=== PATIENT | female | born 1980 | race American Indian/Alaskan Native ===

== ENCOUNTER 2017-04-14 05:59 | Observation (INO) | payer OTHER ==
[2017-04-14 09:00] LABS: Basophils % (Auto) 1.1 % (0.0-1.8); Eosinophils # (Auto) 0.2 K/mm3 (0.0-0.4); Eosinophils % (Auto) 4.3 % (0.0-4.3); Hematocrit 29.8 % (30.3-42.9); Hemoglobin 9.7 gm/dl (10.1-14.3); Lymphocytes # (Auto) 1.6 K/mm3 (1.2-5.4); Lymphocytes % (Auto) 40.3 % (13.4-35.0); Mean Corpuscular HGB Conc 33 % (30-34); Mean Corpuscular Hemoglobin 27 pg (28-32); Mean Corpuscular Volume 83 fl (79-97); Monocytes # (Auto) 0.5 K/mm3 (0.0-0.8); Monocytes % (Auto) 11.6 % (0.0-7.3); Platelet Count 277 K/mm3 (140-440); Red Blood Count 3.61 M/mm3 (3.65-5.03); Red Cell Distribution Width 14.1 % (13.2-15.2)
[2017-04-14 09:54] LABS: INR 0.88 (0.87-1.13)
[2017-04-14 09:55] LABS: Partial Thromboplastin Time 30.3 Sec. (24.2-36.6)
[2017-04-14] MEDS ORDERED: VERSED IV ONE ×2 (11:01→11:05)
--- NOTE | 2017-04-14 11:56 | Cat Scan Report ---
CT BIOPSY RENAL LEFT HISTORY: Proteinuria, hematuria. DESCRIPTION OF PROCEDURE: Informed consent was obtained. Sterile technique was utilized. 1% lidocaine for skin anesthesia. 1 mg of IV Versed was administered. The patient refused fentanyl. Independent cardiorespiratory monitoring by RN. The patient was sedated for 10 minutes. Intraobserver time of [address] guidance, a 17-gauge introducer needle was advanced to the inferior pole of the left kidney. 2 separate 1.3 cm 18-gauge core biopsies were obtained for pathology. The patient tolerated the exam without difficulty. Followup scan demonstrates trace hemorrhage at the biopsy site. The patient was asymptomatic. IMPRESSION: Successful CT-guided biopsy of the inferior pole of the left kidney.
[2017-04-14] MEDS ORDERED: NORCO 5/325 PO ONE (13:23)
--- NOTE | 2017-04-14 15:33 | Cat Scan Report ---
CT ABDOMEN WITHOUT CONTRAST History: Left flank pain after renal biopsy. Technique: Helical CT without contrast. Sagittal and coronal reformatted images. Findings: CT guided biopsy at the inferior pole of the left kidney was performed earlier today at approximately 1130 hrs. On the post biopsy scan, there was trace hemorrhage at the biopsy site which was to be expected. During observation in the outpatient unit, the patient began experiencing increasing left flank pain. The patient was brought back to CT for an additional scan to assess for hemorrhage. The second scan does demonstrate increased acute hemorrhage at the biopsy site since 11:30 hrs. The left perinephric hemorrhage is estimated at a volume of 30-50 cc. There is mild anterior displacement of the left kidney by the hemorrhage. The liver, pancreas, spleen, adrenal glands, right kidney, aorta and visualized bowel loops are within normal limits. There appear to be multiple tiny layering stones in the gallbladder. No biliary dilatation. Heart size is normal. The lung bases are clear. No suspicious bony lesion. IMPRESSION: Left perinephric hemorrhage/hematoma is identified at the left renal biopsy site. See above. Dr. Rothman, the ordering physician, was contacted at 1440 hrs. to discuss these findings. It was decided to admit the patient for 23 hour observation especially given the patient's quaker belief of no blood transfusions. The patient was hemodynamically stable and complained only of dull left flank pain. The hospitalist supervisor publications was contacted and updated on the case.
[2017-04-14 16:25] LABS: Basophils % (Auto) 0.6 % (0.0-1.8); Eosinophils # (Auto) 0.1 K/mm3 (0.0-0.4); Eosinophils % (Auto) 3.1 % (0.0-4.3); Hematocrit 27.3 % (30.3-42.9); Hemoglobin 8.9 gm/dl (10.1-14.3); Lymphocytes # (Auto) 1.2 K/mm3 (1.2-5.4); Lymphocytes % (Auto) 30.8 % (13.4-35.0); Mean Corpuscular HGB Conc 33 % (30-34); Mean Corpuscular Hemoglobin 27 pg (28-32); Mean Corpuscular Volume 81 fl (79-97); Monocytes # (Auto) 0.4 K/mm3 (0.0-0.8); Monocytes % (Auto) 10.3 % (0.0-7.3); Platelet Count 243 K/mm3 (140-440); Red Blood Count 3.35 M/mm3 (3.65-5.03)
[2017-04-14] MEDS ORDERED: NACL 0.9% 1000 ML 1,000 ML ONE (16:36)
[2017-04-14] MEDS: NACL 0.9% 1000 ML 1,000 ML IV SCH (16:39)
[2017-04-14 16:52] LABS: Albumin 3.6 g/dL (3.9-5); Calcium 8.6 mg/dL (8.4-10.2)
--- NOTE | 2017-04-14 23:55 | History and Physical Report ---
History of Present Illness Date of examination: 04/14/17 Date of admission: 04/14/17 15:43 Chief complaint: CC Hematoma L Kidney -post biopsy History of present illness: [place] 36 y/o with CKD admitted for Perinephric Hematoma L side after renal biopsy for observation.No flank pain. Dr Mayes called me to admit directly from radiology dept for moderate amt og Perinephric hematoma.Reviewed CT films with Dr Mayes.Hematoma stabilized.Admit for in case of excess bleeding. Past History Past Medical History: renal failure Past Surgical History: No surgical history Social history: no significant social history, full code Family history: hypertension Medications and Allergies Allergies Allergy/AdvReac Type Severity Reaction Status Date / Time No Known Allergies Allergy Unverified 04/14/17 05:59 Home Medications Medication Instructions Recorded Confirmed Last Taken Type No Known Home Medications [No 04/14/17 04/14/17 Unknown History Reported Home Medications] Active Meds: Active Medications Sodium Chloride (Nacl 0.9% 1000 Ml) 1,000 mls @ 75 mls/hr IV DIRECT PONCE Last Admin: 04/14/17 16:39 Dose: 75 mls/hr Review of Systems All systems: negative Exam - Constitutional Vitals: Temp Pulse Resp BP Pulse Ox 98.8 F 70 18 131/89 100 04/14/17 20:14 04/14/17 21:17 04/14/17 20:14 04/14/17 20:14 04/14/17 20:14 General appearance: Present: no acute distress, well-nourished - EENT Eyes: Present: PERRL ENT: hearing intact, clear oral mucosa - Neck Neck: Present: supple, normal ROM - Respiratory Respiratory effort: normal Respiratory: bilateral: CTA - Cardiovascular Heart rate: 80 Rhythm: regular Heart Sounds: Present: S1 & S2. Absent: rub, click - Extremities Extremities: no ischemia, pulses intact, pulses symmetrical, No edema Peripheral Pulses: within normal limits - Abdominal General gastrointestinal: Present: soft, non-tender, non-distended, normal bowel sounds, other (No flank tenderness) Female genitourinary: Present: normal - Integumentary Integumentary: Present: clear, warm, dry - Musculoskeletal Musculoskeletal: gait normal, strength equal bilaterally - Psychiatric Psychiatric: appropriate mood/affect, intact judgment & insight - Neurologic Neurologic: CNII-XII intact, moves all extremities Results - Labs CBC & Chem 7: 04/15/17 05:30 04/15/17 05:30 Labs: Laboratory Last Values WBC 4.1 K/mm3 (4.5-11.0) L 04/14/17 16:21 RBC 3.35 M/mm3 (3.65-5.03) L 04/14/17 16:21 Hgb 8.9 gm/dl (10.1-14.3) L 04/14/17 16:21 Hct 27.3 % (30.3-42.9) L 04/14/17 16:21 MCV 81 fl (79-97) 04/14/17 16:21 MCH 27 pg (28-32) L 04/14/17 16:21 MCHC 33 % (30-34) 04/14/17 16:21 RDW 14.0 % (13.2-15.2) 04/14/17 16:21 Plt Count 243 K/mm3 (140-440) 04/14/17 16:21 Lymph % (Auto) 30.8 % (13.4-35.0) 04/14/17 16:21 [place] % (Auto) 10.3 % (0.0-7.3) H 04/14/17 16:21 Eos % (Auto) 3.1 % (0.0-4.3) 04/14/17 16:21 Baso % (Auto) 0.6 % (0.0-1.8) 04/14/17 16:21 Lymph # 1.2 K/mm3 (1.2-5.4) 04/14/17 16:21 [place] # 0.4 K/mm3 (0.0-0.8) 04/14/17 16:21 Eos # 0.1 K/mm3 (0.0-0.4) 04/14/17 16:21 Baso # 0.0 K/mm3 (0.0-0.1) 04/14/17 16:21 Seg Neutrophils % 55.2 % (40.0-70.0) 04/14/17 16:21 Seg Neutrophils # 2.2 K/mm3 (1.8-7.7) 04/14/17 16:21 PT 12.4 Sec. (12.2-14.9) 04/14/17 08:51 INR 0.88 (0.87-1.13) 04/14/17 08:51 APTT 30.3 Sec. (24.2-36.6) 04/14/17 08:51 Sodium 140 mmol/L (137-145) 04/14/17 16:21 Potassium 4.8 mmol/L (3.6-5.0) 04/14/17 16:21 Chloride 103.6 mmol/L (98-107) 04/14/17 16:21 Carbon Dioxide 25 mmol/L (22-30) 04/14/17 16:21 Anion Gap 16 mmol/L 04/14/17 16:21 BUN 32 mg/dL (7-17) H 04/14/17 16:21 Creatinine 3.7 mg/dL (0.7-1.2) H 04/14/17 16:21 Estimated GFR 17 ml/min 04/14/17 16:21 BUN/Creatinine Ratio 9 % 04/14/17 16:21 Glucose 109 mg/dL (65-100) H 04/14/17 16:21 Calcium 8.6 mg/dL (8.4-10.2) 04/14/17 16:21 Total Bilirubin 0.40 mg/dL (0.1-1.2) 04/14/17 16:21 AST 13 units/L (5-40) 04/14/17 16:21 ALT 8 units/L (7-56) 04/14/17 16:21 Alkaline Phosphatase 55 units/L (35-129) 04/14/17 16:21 Total Protein 6.3 g/dL (6.3-8.2) 04/14/17 16:21 Albumin 3.6 g/dL (3.9-5) L 04/14/17 16:21 Albumin/Globulin Ratio 1.3 % 04/14/17 16:21 Assessment and Plan Advance Directives: Yes (Full code) VTE prophylaxis?: Mechanical Contraindication Mechanical VTE Prophylaxis: Contraindicated Plan of care discussed with patient/family: Yes - Patient Problems (1) Perinephric hematoma Current Visit: Yes Status: Acute Plan to address problem: Post biopsy on L side Stable at the time of review of CT abd To rpt CT abd in AM and D/w radiology If necessary Urology consult If stable /resolving d/c home to follow up with her presentation specialist (2) EL (acute kidney injury) Current Visit: Yes Status: Acute Plan to address problem: On top of CKD Her Forest Officer is from [facility] Consulted Dr Looney (3) Anemia Current Visit: Yes Status: Chronic Qualifiers: Anemia type: due to chronic kidney disease Chronic kidney disease stage: stage 3 (moderate) Qualified Code(s): N18.3 - Chronic kidney disease, stage 3 (moderate); D63.1 - Anemia in chronic kidney disease; D63.1 - Anemia in chronic kidney disease Plan to address problem: Sec to CKD (4) DVT prophylaxis Current Visit: Yes Status: Acute Plan to address problem: on SCD's
[2017-04-15] MEDS ORDERED: AMBIEN PO PRN (00:40)
[2017-04-15] MEDS ORDERED: TYLENOL PO PRN (00:40)
[2017-04-15] MEDS ORDERED: PERCOCET 5/325 PO PRN (00:40)
[2017-04-15] MEDS ORDERED: DILAUDID IV PRN (00:40)
[2017-04-15] MEDS ORDERED: ZOFRAN IV PRN (00:40)
[2017-04-15] MEDS ORDERED: MILK OF MAGNESIA PO PRN (00:40)
[2017-04-15] MEDS ORDERED: DULCOLAX PR PRN (00:40)
[2017-04-15] MEDS ORDERED: PEPCID PO SCH (01:00)
[2017-04-15] MEDS ORDERED: MORPHINE IV PRN (01:33)
[2017-04-15 01:43] LABS: Basophils % (Auto) 0.5 % (0.0-1.8); Eosinophils # (Auto) 0.2 K/mm3 (0.0-0.4); Eosinophils % (Auto) 3.7 % (0.0-4.3); Hematocrit 27.3 % (30.3-42.9); Hemoglobin 8.9 gm/dl (10.1-14.3); Lymphocytes # (Auto) 1.7 K/mm3 (1.2-5.4); Lymphocytes % (Auto) 35.9 % (13.4-35.0); Mean Corpuscular HGB Conc 33 % (30-34); Mean Corpuscular Hemoglobin 26 pg (28-32); Mean Corpuscular Volume 81 fl (79-97); Monocytes # (Auto) 0.5 K/mm3 (0.0-0.8); Monocytes % (Auto) 10.3 % (0.0-7.3); Platelet Count 237 K/mm3 (140-440); Red Blood Count 3.37 M/mm3 (3.65-5.03); Red Cell Distribution Width 13.9 % (13.2-15.2)
[2017-04-15 05:58] LABS: Hematocrit 26.4 % (30.3-42.9); Hemoglobin 8.6 gm/dl (10.1-14.3); Mean Corpuscular HGB Conc 32 % (30-34); Mean Corpuscular Hemoglobin 26 pg (28-32); Mean Corpuscular Volume 82 fl (79-97); Platelet Count 231 K/mm3 (140-440); Red Blood Count 3.24 M/mm3 (3.65-5.03); Red Cell Distribution Width 13.9 % (13.2-15.2)
[2017-04-15 06:13] LABS: Calcium 8.3 mg/dL (8.4-10.2)
[2017-04-15] MEDS: NACL 0.9% 1000 ML 1,000 ML IV SCH ×2 (06:35→21:47)
--- NOTE | 2017-04-15 08:07 | Cat Scan Report ---
CT ABDOMEN PELVIS WITHOUT CONTRAST: HISTORY: Left flank pain, reevaluate left perinephric hemorrhage. COMPARISON: 04/14/17 at 1415 hrs.. TECHNIQUE: Helical CT in 1.25mm intervals without IV contrast. Sagittal and coronal reconstructions. FINDINGS: Lung bases: Normal. Liver: Normal. Biliary system: Multiple tiny layering gallstones are again noted in the gallbladder. No evidence for biliary dilatation or inflammation. The common bile duct is normal caliber. Pancreas: Normal. Spleen: Normal. Kidneys/ureters/bladder: The left perinephric hemorrhage has decreased from 6.3 x 3.3 cm in axial plane to 5.2 x 2.4 cm in axial plane on image 62, series 2. Anterior displacement of the left kidney has also decreased by approximately 1 cm. This appears to be a perinephric hemorrhage and not a subcapsular hematoma. The unenhanced CT appearance of the kidneys are within normal limits. No evidence for cystic disease, large renal mass, nephrolithiasis or hydronephrosis. Left ovarian vein phlebolith is noted. The right kidney and bladder are unremarkable. Adrenal glands: Normal. Aorta: Normal. Intestines: Within normal limits given no oral contrast was administered. Appendix: Normal. Pelvic viscera: Normal. Ascites: There is trace fluid in the left paracolic gutter and cul-de-sac associated with the left perinephric hemorrhage. Adenopathy: None. Musculoskeletal: Normal. IMPRESSION: From a radiographic standpoint, the left perinephric hemorrhage has stabilized and decreased slightly in size as outlined above. No new acute process is appreciated. Cholelithiasis.
--- NOTE | 2017-04-15 08:28 | Consultation ---
History of Present Illness - Reason for Consult Consult date: 04/15/17 acute renal failure, chronic renal failure - History of Present Illness The patient is a 36 YO AAF with history significant for CKD stage 4 of unknown etiology who underwent left kidney needle biopsy yesterday. She developed left flank and on further imaging she was found to have left Perinephric Hematoma and she was admitted for observation. Her pain is better today. Denies any urinary symptoms. Her Doorshaker is . Past History Past Medical History: renal failure Past Surgical History: No surgical history Social history: no significant social history, full code Family history: hypertension Medications and Allergies Allergies Allergy/AdvReac Type Severity Reaction Status Date / Time No Known Allergies Allergy Unverified 04/14/17 05:59 Home Medications Medication Instructions Recorded Confirmed Last Taken Type No Known Home Medications [No 04/14/17 04/14/17 Unknown History Reported Home Medications] Active Meds: Active Medications Acetaminophen (Tylenol) 650 mg PO Q4H PRN PRN Reason: Pain MILD(1-3)/Fever >100.5/SALEH Bisacodyl (Dulcolax) 10 mg DE QDAY PRN PRN Reason: Constipation unrelieved by [facility] Famotidine (Pepcid) 10 mg PO BID PONCE Hydromorphone HCl (Dilaudid) 0.5 mg IV Q3H PRN PRN Reason: Pain , Severe (7-10) Sodium Chloride (Nacl 0.9% 1000 Ml) 1,000 mls @ 75 mls/hr IV DIRECT PONCE Last Admin: 04/15/17 06:35 Dose: 75 mls/hr Magnesium Hydroxide (Milk Of Magnesia) 30 ml PO Q4H PRN PRN Reason: Constipation Morphine Sulfate (Morphine) 2 mg IV Q4H PRN PRN Reason: Pain, Moderate (4-6) Ondansetron HCl (Zofran) 4 mg IV Q8H PRN PRN Reason: N/V unrelieved by Reglan Oxycodone/Acetaminophen (Percocet 5/325) 1 tab PO Q6H PRN PRN Reason: Pain, Moderate (4-6) Zolpidem Tartrate (Ambien) 5 mg PO QHS PRN PRN Reason: Insomnia Review of Systems Constitutional: no weight loss, no weight gain, no fever, no chills, no anorexia , no weakness, no poor appetite Ears, nose, mouth and throat: no epistaxis Breasts: deferred Cardiovascular: no chest pain, no orthopnea, no palpitations, no edema, no syncope, no lightheadedness, no shortness of breath, no high blood pressure, no leg edema Respiratory: no cough, no hemoptysis, no shortness of breath Gastrointestinal: no nausea, no vomiting, no diarrhea, no constipation, no melena Genitourinary Female: flank pain (left side), no dysuria, no hematuria Rectal: no bleeding Integumentary: no rash, no wounds Psychiatric: no disorientation Exam - Vital Signs Vital signs: Vital Signs Temp Pulse Resp BP Pulse Ox 98.3 F 79 18 138/101 100 04/14/17 08:30 04/14/17 08:30 04/14/17 08:30 04/14/17 08:30 04/14/17 08:30 - General Appearance General appearance: well-developed, well-nourished, appears stated age, other ( Supervisor [employer]ir present, no distress) EENT: ATNC, PERRL, hearing intact, vision intact Neck: Present: neck supple, trachea midline Respiratory: Clear to Ascultation Heart: regular, S1S2, no murmurs Gastrointestinal: Present: normoactive bowel sounds, other (dressing over the biopsy site). Absent: tenderness, distended Integumentary: no rash, warm and dry Neurologic: no focal deficit, no asterixis, alert and oriented x3 Musculoskeletal: Present: other (no edema) Psychiatric: mood/affect appropriate, cooperative Results - Lab Results 04/15/17 10:31 04/15/17 10:31 Most recent lab results Calcium 8.3 mg/dL (8.4-10.2) L 04/15/17 05:30 - Image Kidney/bladder ultrasound: report reviewed Assessment and Plan 1. Chronic kidney disease stage 4. Renal function is stable. Monitor. 2. Left perinephric hematoma after kidney biopsy. 3. Anemia.
--- NOTE | 2017-04-15 09:13 | Progress Note ---
<JACKLYN ESCOBAR - Last Filed: 04/15/17 11:34> Assessment and Plan Assessment and plan: 36 y/o with CKD admitted for Perinephric Hematoma L side after renal biopsy for observation.No flank pain. Dr Mayes called to admit directly from radiology dept for moderate amt of Perinephric hematoma. 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 Follow up on diagnosis of Perinephric hematoma. Patient denies chest pain, shortness of breath, nausea vomiting. Labs and nursing notes reviewed Hospitalist Physical - Constitutional Vitals: Temp Pulse Resp BP Pulse Ox 98.2 F 74 16 128/76 100 04/15/17 01:00 04/15/17 01:00 04/15/17 01:00 04/15/17 01:00 04/15/17 01:00 General appearance: Present: no acute distress, well-nourished - EENT Eyes: Present: PERRL, EOM intact ENT: hearing intact, clear oral mucosa - Neck Neck: Present: supple, normal ROM - Respiratory Respiratory effort: normal Respiratory: bilateral: CTA - Cardiovascular Rhythm: regular Heart Sounds: Present: S1 & S2 - Extremities Extremities: no ischemia, No edema - Abdominal General gastrointestinal: soft, non-tender, non-distended - Integumentary Integumentary: Present: clear, warm, dry - Psychiatric Psychiatric: appropriate mood/affect, intact judgment & insight, cooperative - Neurologic Neurologic: CNII-XII intact, moves all extremities - Allied Health Allied health notes reviewed: nursing Results - Labs CBC & Chem 7: 04/15/17 10:31 04/15/17 05:30 Labs: Laboratory Last Values WBC 4.6 K/mm3 (4.5-11.0) 04/15/17 05:30 RBC 3.24 M/mm3 (3.65-5.03) L 04/15/17 05:30 Hgb 8.6 gm/dl (10.1-14.3) L 04/15/17 05:30 Hct 26.4 % (30.3-42.9) L 04/15/17 05:30 MCV 82 fl (79-97) 04/15/17 05:30 MCH 26 pg (28-32) L 04/15/17 05:30 MCHC 32 % (30-34) 04/15/17 05:30 RDW 13.9 % (13.2-15.2) 04/15/17 05:30 Plt Count 231 K/mm3 (140-440) 04/15/17 05:30 Lymph % (Auto) 35.9 % (13.4-35.0) H 04/15/17 00:57 [place] % (Auto) 10.3 % (0.0-7.3) H 04/15/17 00:57 Eos % (Auto) 3.7 % (0.0-4.3) 04/15/17 00:57 Baso % (Auto) 0.5 % (0.0-1.8) 04/15/17 00:57 Lymph # 1.7 K/mm3 (1.2-5.4) 04/15/17 00:57 [place] # 0.5 K/mm3 (0.0-0.8) 04/15/17 00:57 Eos # 0.2 K/mm3 (0.0-0.4) 04/15/17 00:57 Baso # 0.0 K/mm3 (0.0-0.1) 04/15/17 00:57 Seg Neutrophils % 49.6 % (40.0-70.0) 04/15/17 00:57 Seg Neutrophils # 2.3 K/mm3 (1.8-7.7) 04/15/17 00:57 PT 12.4 Sec. (12.2-14.9) 04/14/17 08:51 INR 0.88 (0.87-1.13) 04/14/17 08:51 APTT 30.3 Sec. (24.2-36.6) 04/14/17 08:51 Sodium 142 mmol/L (137-145) 04/15/17 05:30 Potassium 4.8 mmol/L (3.6-5.0) 04/15/17 05:30 Chloride 105.9 mmol/L (98-107) 04/15/17 05:30 Carbon Dioxide 22 mmol/L (22-30) 04/15/17 05:30 Anion Gap 19 mmol/L 04/15/17 05:30 BUN 32 mg/dL (7-17) H 04/15/17 05:30 Creatinine 4.2 mg/dL (0.7-1.2) H 04/15/17 05:30 Estimated GFR 14 ml/min 04/15/17 05:30 BUN/Creatinine Ratio 8 % 04/15/17 05:30 Glucose 85 mg/dL (65-100) 04/15/17 05:30 Hemoglobin A1c 4.9 % (4-6) 04/15/17 00:57 Calcium 8.3 mg/dL (8.4-10.2) L 04/15/17 05:30 Total Bilirubin 0.40 mg/dL (0.1-1.2) 04/14/17 16:21 AST 13 units/L (5-40) 04/14/17 16:21 ALT 8 units/L (7-56) 04/14/17 16:21 Alkaline Phosphatase 55 units/L (35-129) 04/14/17 16:21 Total Protein 6.3 g/dL (6.3-8.2) 04/14/17 16:21 Albumin 3.6 g/dL (3.9-5) L 04/14/17 16:21 Albumin/Globulin Ratio 1.3 % 04/14/17 16:21 <RODOLFO GOYAL R - Last Filed: 04/15/17 15:15> Assessment and Plan Assessment and plan: I saw and evaluated the patient. I agree with the findings and the plan of care as documented in the PA's~note, with the following corrections and additions. Hospitalist Physical - Constitutional Vitals: Temp Pulse Resp BP Pulse Ox 98.2 F 81 18 136/79 95 04/15/17 09:31 04/15/17 09:31 04/15/17 09:31 04/15/17 09:31 04/15/17 09:34 Results - Labs CBC & Chem 7: 04/15/17 10:31 04/15/17 10:31 Labs: Laboratory Last Values WBC 4.6 K/mm3 (4.5-11.0) 04/15/17 05:30 RBC 3.24 M/mm3 (3.65-5.03) L 04/15/17 05:30 Hgb 8.6 gm/dl (10.1-14.3) L 04/15/17 10:31 Hct 26.1 % (30.3-42.9) L 04/15/17 10:31 MCV 82 fl (79-97) 04/15/17 05:30 MCH 26 pg (28-32) L 04/15/17 05:30 MCHC 32 % (30-34) 04/15/17 05:30 RDW 13.9 % (13.2-15.2) 04/15/17 05:30 Plt Count 231 K/mm3 (140-440) 04/15/17 05:30 Lymph % (Auto) 35.9 % (13.4-35.0) H 04/15/17 00:57 [place] % (Auto) 10.3 % (0.0-7.3) H 04/15/17 00:57 Eos % (Auto) 3.7 % (0.0-4.3) 04/15/17 00:57 Baso % (Auto) 0.5 % (0.0-1.8) 04/15/17 00:57 Lymph # 1.7 K/mm3 (1.2-5.4) 04/15/17 00:57 [place] # 0.5 K/mm3 (0.0-0.8) 04/15/17 00:57 Eos # 0.2 K/mm3 (0.0-0.4) 04/15/17 00:57 Baso # 0.0 K/mm3 (0.0-0.1) 04/15/17 00:57 Seg Neutrophils % 49.6 % (40.0-70.0) 04/15/17 00:57 Seg Neutrophils # 2.3 K/mm3 (1.8-7.7) 04/15/17 00:57 PT 12.4 Sec. (12.2-14.9) 04/14/17 08:51 INR 0.88 (0.87-1.13) 04/14/17 08:51 APTT 30.3 Sec. (24.2-36.6) 04/14/17 08:51 Sodium 142 mmol/L (137-145) 04/15/17 10:31 Potassium 4.6 mmol/L (3.6-5.0) 04/15/17 10:31 Chloride 103.8 mmol/L (98-107) 04/15/17 10:31 Carbon Dioxide 23 mmol/L (22-30) 04/15/17 10:31 Anion Gap 20 mmol/L 04/15/17 10:31 BUN 31 mg/dL (7-17) H 04/15/17 10:31 Creatinine 3.9 mg/dL (0.7-1.2) H 04/15/17 10:31 Estimated GFR 16 ml/min 04/15/17 10:31 BUN/Creatinine Ratio 8 % 04/15/17 10:31 Glucose 80 mg/dL (65-100) 04/15/17 10:31 Hemoglobin A1c 4.9 % (4-6) 04/15/17 00:57 Calcium 8.4 mg/dL (8.4-10.2) 04/15/17 10:31 Total Bilirubin 0.40 mg/dL (0.1-1.2) 04/14/17 16:21 AST 13 units/L (5-40) 04/14/17 16:21 ALT 8 units/L (7-56) 04/14/17 16:21 Alkaline Phosphatase 55 units/L (35-129) 04/14/17 16:21 Total Protein 6.3 g/dL (6.3-8.2) 04/14/17 16:21 Albumin 3.6 g/dL (3.9-5) L 04/14/17 16:21 Albumin/Globulin Ratio 1.3 % 04/14/17 16:21
[2017-04-15] MEDS: PEPCID PO SCH ×2 (09:42→21:47)
[2017-04-15 11:15] LABS: Hematocrit 26.1 % (30.3-42.9); Hemoglobin 8.6 gm/dl (10.1-14.3)
[2017-04-15 11:34] LABS: Calcium 8.4 mg/dL (8.4-10.2)
[2017-04-15 18:49] LABS: Hematocrit 25.7 % (30.3-42.9); Hemoglobin 8.4 gm/dl (10.1-14.3)
[2017-04-16 08:44] VITALS: BP 120/71
[2017-04-16 08:55] LABS: Basophils % (Auto) 0.9 % (0.0-1.8); Eosinophils # (Auto) 0.2 K/mm3 (0.0-0.4); Eosinophils % (Auto) 4.8 % (0.0-4.3); Hematocrit 24.7 % (30.3-42.9); Hemoglobin 8.1 gm/dl (10.1-14.3); Lymphocytes # (Auto) 1.2 K/mm3 (1.2-5.4); Lymphocytes % (Auto) 30.5 % (13.4-35.0); Mean Corpuscular HGB Conc 33 % (30-34); Mean Corpuscular Hemoglobin 27 pg (28-32); Mean Corpuscular Volume 81 fl (79-97); Monocytes # (Auto) 0.5 K/mm3 (0.0-0.8); Monocytes % (Auto) 12.4 % (0.0-7.3); Platelet Count 219 K/mm3 (140-440); Red Blood Count 3.04 M/mm3 (3.65-5.03)
[2017-04-16 09:15] LABS: Albumin 3.5 g/dL (3.9-5); Calcium 8.4 mg/dL (8.4-10.2)
[2017-04-16] MEDS: PEPCID PO SCH (09:26)
[2017-04-16] MEDS: NACL 0.9% 1000 ML 1,000 ML IV SCH (11:39)
--- NOTE | 2017-04-16 12:58 | Progress Note ---
Assessment and Plan S/p kidney bx - No bleeding or obvious swelling, No Hematuria Vitals - Stable CKD - F/u per primary Supervisor Calibration on d/c Subjective Date of service: 04/16/17 Interval history: No Complaint, No pain at bx site, No Hematuria Objective - Vital Signs Vital signs: Vital Signs - 12hr 04/16/17 04/16/17 08:01 10:00 Temperature 98.3 F Pulse Rate 75 Respiratory 16 Rate Blood Pressure 120/71 O2 Sat by Pulse 98 97 Oximetry - General Appearance General appearance: other (Awake, alert, In no distress) Neck: no JVD Respiratory: Present: Clear to Ascultation Cardiology: regular, S1S2 Gastrointestinal: normal, other (No bleeding, obvious swelling, only minimal tenderness Lt flank (bx site with band aid)) Neurologic: no focal deficit - Lab 04/16/17 08:16 04/16/17 08:16 Most recent lab results Calcium 8.4 mg/dL (8.4-10.2) 04/16/17 08:16
--- NOTE | 2017-04-16 13:52 | Discharge Summary ---
Providers - Providers Date of Admission: 04/14/17 15:43 Date of discharge: 04/16/17 Attending physician: RODOLFO GOYAL 04/14/17 16:34 Consult to Physician [CONS] Routine Consulting Provider: KIMBERLY MEJIA Reason For Exam: RENAL HEMATOMA, ACUTE RENAL FAILURE Place consult to:: DR. MEJIA Notified:: A.SBeatriz Phone number called:: [phone] Was contact made?: No If yes, spoke with:: BENJAMIN Time called:: 17:21 Comment:: PLEASE NOTIFY MD TODAY. 04/15/17 09:12 Consult to Dietitian/Nutrition [CONS] Routine Physician Instructions: Reason For Exam: Reason for Consult: Malnutrition Primary care physician: ALONDRA CARRENO Hospitalization Condition: Stable Hospital course: 36 y/o with CKD admitted for Perinephric Hematoma L side after renal biopsy for observation.No flank pain. Dr Mayes called to admit directly from radiology dept for moderate amt of Perinephric hematoma. Perinephric hematoma s/p left renal bx, stable If stable /resolving d/c home to follow up with her [employer] internship Acute on chronic kidney failure Nephrology following Anemia Sec to CKD, transfuse if hemoglobin less than 7 Mild malnutrition Nutrition was consulted DVT prophylaxis on SCD's Disposition: DC-01 TO HOME OR SELFCARE Time spent for discharge: 35 min Core Measure Documentation - Palliative Care Palliative Care/ Comfort Measures: Not Applicable - Core Measures Any of the following diagnoses?: none - VTE Discharge Requirements Deep Vein Thrombosis/Pulmonary Embolism Present on Admission: No Has pt received <5 days of overlap therapy or INR<2.0: No Anticoagulant overlap therapy prescribed at discharge: No Contraindication No Overlap Therapy order at DC: Not Indicated Exam - Physical Exam Narrative exam: GEN: WDWN, NAD, AWAKE, ALERT, ORIENTATED x 3 HEENT: NCAT, EOMI, PERRL, OP Clear NECK: supple, no adenopathy, no thyromegaly, no JVD CVS/HEART: RRR, NORMAL S1S2, pulses present bilaterally CHEST/LUNGS: CTA B, Symmetrical chest expansion, good air entry bilaterally GI/Abdomen: soft, NTND, good bowel sounds, no guarding or rebound /Bladder: no suprapubic tenderness, no CVA or paraspinal tenderness EXT/Skin: no c/c/e, no obvious rash MSK: FROM x 4 Neuro: CN 2-12 grossly intact, no new focal deficits Psych: calm - Constitutional Vitals: Temp Pulse Resp BP Pulse Ox 98.3 F 75 16 120/71 97 04/16/17 08:01 04/16/17 08:01 04/16/17 08:01 04/16/17 08:01 04/16/17 10:00 Plan Activity: other (no strenous activity until cleared by pcp) Diet: renal Follow up with: ALONDRA CARRENO MD [Primary Care Provider] - 7 Days COLLIN ALEXIS MD [Referring] - 7 Days
== END 2017-04-16 16:05 | disposition home or self-care (01) ==
LOC: CATHLABREC 05:59 → EDSTATUS 08:30 → 3A 15:43
PROVIDERS: ADMIT Internal Medicine; ATTEND Internal Medicine
DX: S37.092A Other injury of left kidney, initial encounter (principal); N17.9 Acute kidney failure, unspecified; N18.4 Chronic kidney disease, stage 4 (severe); D63.1 Anemia in chronic kidney disease; E46 Unspecified protein-calorie malnutrition
CPT/HCPCS: 36415; 50200; 74150; 74176; 77012; 80048; 80053; 83036; 85014; 85018; 85025; 85027; 85610; 85730; 88313; 88346; 88348; 96374; G0378; J2250; J7030

== ENCOUNTER 2017-04-27 20:09 | Emergency (ER) | payer OTHER ==
[2017-04-27] MEDS ORDERED: TORADOL IV ONE (21:08)
[2017-04-27] MEDS ORDERED: ZOFRAN IV ONE (21:08)
--- NOTE | 2017-04-27 21:08 | Emergency Department Report ---
Blank Doc - Documentation Documentation: Patient is a 36-year-old female who 2 weeks ago had a renal biopsy because of proteinuria and hematuria who is presenting with a fullness sensation left abdomen as well as pain. Patient states the pain is progressively getting worse. Patient denies any nausea vomiting or diarrhea or fever. Patient after the biopsy did have 2 day observation. Because of possible internal bleeding. Patient will have a CT abdomen and pelvis with contrast as well blood work done. As
[2017-04-27 21:28] LABS: Eosinophils # (Auto) 0.2 K/mm3 (0.0-0.4); Eosinophils % (Auto) 4.7 % (0.0-4.3); Hemoglobin 8.7 gm/dl (10.1-14.3); Lymphocytes # (Auto) 1.6 K/mm3 (1.2-5.4); Lymphocytes % (Auto) 33.7 % (13.4-35.0); Monocytes # (Auto) 0.5 K/mm3 (0.0-0.8); Monocytes % (Auto) 10.9 % (0.0-7.3)
[2017-04-27 21:37] LABS: Calcium 8.6 mg/dL (8.4-10.2)
[2017-04-27 21:47] LABS: Hematocrit 27.7 % (30.3-42.9); Mean Corpuscular HGB Conc 33 % (30-34); Mean Corpuscular Hemoglobin 27 pg (28-32); Mean Corpuscular Volume 82 fl (79-97); Platelet Count 358 K/mm3 (140-440); Red Blood Count 3.39 M/mm3 (3.65-5.03); Red Cell Distribution Width 13.8 % (13.2-15.2)
--- NOTE | 2017-04-27 22:29 | Cat Scan Report ---
FINAL REPORT PROCEDURE: CT ABDOMEN PELVIS WO CON TECHNIQUE: Computerized axial tomography of the abdomen and pelvis was performed without intravenous contrast. This study is performed without intravascular contrast material and its sensitivity for abdominal and pelvic pathology, including neoplasms, inflammation, abscess, free fluid, thrombosis, arterial dissection and infarction, is reduced compared with a contrast enhanced study. HISTORY: s/p L kidney bipsy r/o hematoma, pt refused contra COMPARISON: 04/15/2017 FINDINGS: There is further interval resolution of left kidney lower pole perinephric hematoma which now measures about 3.9 x 1.8 x 6.0 centimeters in transverse, AP and craniocaudal dimensions compared prior measurement 5.2 x 2.4 x 7.4 centimeters. There is no evidence of any new hematoma. There is no obstructive uropathy. The remaining intra-abdominal and pelvic structures are within normal limits. Moderate degree residual stool is noted. IMPRESSION: There is further interval resolution of the left perinephric hematoma..
[2017-04-27 23:33] LABS: Bacteria,Urine 1+ /HPF (Negative); Bilirubin,Urine NEG (Negative); Blood,Urine MOD (Negative); Color,Urine Red (Yellow); Urobilinogen,Urine < 2.0 mg/dL (<2.0)
[2017-04-27 23:43] LABS: HCG Qualitative,Urine Negative (Negative)
--- NOTE | 2017-04-28 00:12 | XRay Report ---
FINAL REPORT EXAM: XR CHEST ROUTINE 2V HISTORY: shortness of breathing and swelling to the left ch TECHNIQUE: PA and lateral views of the chest were submitted. FINDINGS: The lungs are clear. Pleural fluid is not seen. The heart size is normal. The bones and soft tissues appear normal. IMPRESSION: Normal chest
--- NOTE | 2017-04-28 00:42 | Emergency Department Report ---
HPI - General Chief Complaint: Pain General Time Seen by Provider: 04/27/17 21:00 - HPI HPI: 36-year-old female comes in today for swelling in her left upper torso. Patient reports that she had has a history of acute kidney disease stage IV. She reports that she had a kidney biopsy on the 15th of this month and had to be observed for 2 days for a hematoma. Patient is concerned today because she's having swelling in her left upper torso right under her breast and above her breasts with shortness of breathing. In review of chart patient has a H&H of 8.7 and 27.7. Her creatinine clearance is hovered around 3.6. We did a CAT scan and this showed that her hematoma of her left kidney is decreased in size. She is followed by nephrology but she does not have a primary care provider. SHe should reports she cannot have contrast due to her kidney failure. ED Past Medical Hx - Past Medical History Previous Medical History?: Yes Hx Hypertension: Yes Hx GERD: Yes Hx Renal Disease: Yes ("renal failure, no dialysis") Hx Asthma: No - Surgical History Past Surgical History?: Yes Additional Surgical History: x2 - Social History Smoking Status: Never Smoker Substance Use Type: None - Medications Home Medications: Home Medications Medication Instructions Recorded Confirmed Last Taken Type No Known Home Medications [No 04/14/17 04/14/17 Unknown History Reported Home Medications] ED Review of Systems ROS: Stated complaint: SWELLING LEFT UPPER TORSO Other details as noted in HPI Physical Exam - Physical Exam Vital Signs: Vital Signs 04/27/17 20:18 Temperature 98.4 F Pulse Rate 79 Respiratory 18 Rate Blood Pressure 137/97 O2 Sat by Pulse 100 Oximetry Physical Exam: GENERAL: Alert and oriented x3, no apparent distress, Normal Gait, atraumatic. HEAD: Head is normocephalic and a-traumatic. EYES: Extra ocular muscles are intact. Pupils are equal, round, and reactive to light and accommodation. EARS: symetrical, atraumatic, non tender, ear canal clear and moderate cerumen, tympanic membrance non inflamed. gross auditory nml bilaterally. NOSE: Nose symetrical, Nontender,Nares appeared normal. MOUTH:Mouth is well hydrated and without lesions. Tonsils nonerythematous or swollen, Uvula midline, Tongue not elevated. Mucous membranes are moist. Posterior pharynx clear, no exudate or lesions. Patent airways. NECK: Supple. Non edematous, No carotid bruits. No lymphadenopathy or thyromegaly. LUNGS: Symetrical with respiration, No wheezing, no rales or crackles, CTAB. HEART: S1, S2 present, regular rate and rhythm without murmur, no rubs, no gallops. ABDOMEN: No organomegaly was noted,Positive bowel sounds, soft, and non- distended. . Nontender to palpation on all Quadrants, NO CVA tenderness. BREAST: Symetrical, Supple bilaterally, No Masses, lumps, lesions, ulcerations. Mild swelling under her left breast and above left breast EXTREMITIES/MUSCULOSKELETAL: No cyanosis, clubbing, rash, lesions or edema. Full ROM bilaterally. UE/LE Pulses 2+ bilaterally. LE and UE 5+ strength bilaterally NEUROLOGIC: No focal Deficit, Cranial nerves II through XII are grossly intact. No loss of sensation, No facial droop, PSYCHIATRIC: Mood is congruent with affect, denies suicidal or homicidal ideations. SKIN: Warm and dry, No lesions, No ulceration or induration present ED Course Vital Signs 04/27/17 20:18 Temperature 98.4 F Pulse Rate 79 Respiratory 18 Rate Blood Pressure 137/97 O2 Sat by Pulse 100 Oximetry ED Medical Decision Making - Lab Data Result diagrams: 04/27/17 21:12 04/27/17 21:12 - Radiology Data Radiology results: report reviewed, image reviewed FINAL REPORT PROCEDURE: CT ABDOMEN PELVIS WO CON TECHNIQUE: Computerized axial tomography of the abdomen and pelvis was performed without intravenous contrast. This study is performed without intravascular contrast material and its sensitivity for abdominal and pelvic pathology, including neoplasms, inflammation, abscess, free fluid, thrombosis, arterial dissection and infarction, is reduced compared with a contrast enhanced study. HISTORY: s/p L kidney bipsy r/o hematoma, pt refused contra COMPARISON: 04/15/2017 FINDINGS: There is further interval resolution of left kidney lower pole perinephric hematoma which now measures about 3.9 x 1.8 x 6.0 centimeters in transverse, AP and craniocaudal dimensions compared prior measurement 5.2 x 2.4 x 7.4 centimeters. There is no evidence of any new hematoma. There is no obstructive uropathy. The remaining intra-abdominal and pelvic structures are within normal limits. Moderate degree residual stool is noted. IMPRESSION: There is further interval resolution of the left perinephric hematoma.. Transcribed By: [facility] Dictated By: KIESHA MAK Electronically Authenticated By: KIESHA MAK Signed Date/Time: 04/27/172224 DD/ 24 TD/TT: 04/27/172224 Chest x-ray normal exam - Medical Decision Making Patient has been evaluated by this provider in fast track as well as Dr. Izquierdo. Discussed with patient that her hematoma of her left kidney has been decreasing. Discussed the patient a chest x-ray was negative. Also discussed the patient that her serum creatinine is stable at 3.6 chest some mild anemia. Discussed the patient she can follow-up with Dr. 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 Patient verbalized understanding. Critical care attestation.: If time is entered above; I have spent that time in minutes in the direct care of this critically ill patient, excluding procedure time. ED Disposition Clinical Impression: Chronic renal disease, stage IV, Perinephric hematoma Anemia Qualifiers: Anemia type: due to chronic kidney disease Chronic kidney disease stage: stage 4 (severe) Qualified Code(s): N18.4 - Chronic kidney disease, stage 4 (severe); D63.1 - Anemia in chronic kidney disease Disposition: DC-01 TO HOME OR SELFCARE Is pt being admited?: No Does the pt Need Aspirin: No Condition: Stable Instructions: Chronic Kidney Disease (ED), Impaired Kidney Function (ED), Anemia (ED) Additional Instructions: Please follow up with her primary care provider and primary offset machine operator. Please of weight all contrast dye, ibuprofen or any other medication that can be nephrotoxic. He may take Tylenol for pain. Referrals: ALONDRA CARRENO MD [Primary Care Provider] - 3-5 Days LUIS JOEL MD [Staff Physician] - 3-5 Days [facility] [Provider Group] - 3-5 Days [facility] [Provider Group] - 3-5 Days Forms: AMA Form, Work/School Release Form(ED)
[2017-04-28 01:06] VITALS: BP 160/104
== END 2017-04-28 01:06 | disposition home or self-care (01) ==
LOC: ED 20:09
DX: I12.9 Hypertensive chronic kidney disease with stage 1 through stage 4 chronic kidney disease, or unspecified chronic kidney disease (principal); N18.4 Chronic kidney disease, stage 4 (severe); K21.9 Gastro-esophageal reflux disease without esophagitis; D63.1 Anemia in chronic kidney disease
CPT/HCPCS: 36415; 71046; 74176; 80048; 81001; 81025; 85025; J1885; J2405

== ENCOUNTER 2017-05-05 10:32 | Outpatient (CLI) | payer OTHER ==
--- NOTE | 2017-05-05 11:30 | Ultrasound Report ---
ULTRASOUND RENAL BILATERAL HISTORY: Chronic kidney disease. TECHNIQUE: transabdominal ultrasound with color Doppler interrogation. FINDINGS: The right kidney measures 7.9 x 3.9 x 4.2cm. Right renal cortex: 1.0cm. The left kidney measures 9.4 x 4.5 x 5.9cm. Left renal cortex: 1.3cm. The right kidney is atrophic. Both kidneys are echogenic consistent with nonspecific renal parenchymal disease. A 2.2 x 1.2 cm cyst is noted at the inferior pole of the left kidney. No evidence for nephrolithiasis, hydronephrosis, perinephric fluid or mass. The bladder is unremarkable. IMPRESSION: Echogenic kidneys consistent with nonspecific renal parenchymal disease. Atrophic right kidney. Simple left renal cyst. No obstructive uropathy.
== END 2017-05-05 10:33 | disposition home or self-care (01) ==
LOC: US 10:32
PROVIDERS: ATTEND Internal Medicine Nephrology
DX: I12.9 Hypertensive chronic kidney disease with stage 1 through stage 4 chronic kidney disease, or unspecified chronic kidney disease (principal); N18.4 Chronic kidney disease, stage 4 (severe); N28.1 Cyst of kidney, acquired
CPT/HCPCS: 76770

== ENCOUNTER 2017-05-12 20:22 | Emergency (ER) | payer OTHER ==
[2017-05-12] MEDS ORDERED: ASPIRIN PO ONE (20:47)
[2017-05-12 21:05] LABS: Basophils % (Auto) 0.6 % (0.0-1.8); Eosinophils # (Auto) 0.1 K/mm3 (0.0-0.4); Eosinophils % (Auto) 2.3 % (0.0-4.3); Hematocrit 29.3 % (30.3-42.9); Hemoglobin 9.5 gm/dl (10.1-14.3); Lymphocytes # (Auto) 0.6 K/mm3 (1.2-5.4); Mean Corpuscular HGB Conc 32 % (30-34); Mean Corpuscular Hemoglobin 26 pg (28-32); Mean Corpuscular Volume 81 fl (79-97); Monocytes # (Auto) 0.4 K/mm3 (0.0-0.8); Monocytes % (Auto) 9.7 % (0.0-7.3); Platelet Count 279 K/mm3 (140-440); Red Blood Count 3.61 M/mm3 (3.65-5.03); Red Cell Distribution Width 13.5 % (13.2-15.2)
[2017-05-12 21:22] LABS: BUN/Creatinine Ratio 5; Blood Urea Nitrogen 17 mg/dL (7-17); Hemolysis Index 3
[2017-05-13 00:29] VITALS: BP 146/85
--- NOTE | 2017-05-13 01:00 | Emergency Department Report ---
ED General Adult HPI - General Chief complaint: Chest Pain Stated complaint: HIGH POTASSIUM Time Seen by Provider: 05/13/17 00:35 Source: patient Mode of arrival: Ambulatory Limitations: No Limitations - History of Present Illness Initial comments: Ms. Calvo has hx of CKD and HTN. She was evaluated by new PCP at [facility]. Blood drawn this week revealed hypokalemia. She was referred to ER. No physical complaints. She is followed by diver assistant. Denies chest pain, headache, palpitations, abdominal pain Severity scale (0 -10): 5 - Related Data Home Medications Medication Instructions Recorded Confirmed Last Taken No Known Home Medications [No 04/14/17 04/14/17 Unknown Reported Home Medications] Allergies Allergy/AdvReac Type Severity Reaction Status Date / Time No Known Allergies Allergy Verified 05/12/17 20:42 ED Review of Systems ROS: Stated complaint: HIGH POTASSIUM Other details as noted in HPI Comment: All other systems reviewed and negative Respiratory: denies: cough Cardiovascular: denies: chest pain ED Past Medical Hx - Past Medical History Hx Hypertension: Yes Hx GERD: Yes Hx Renal Disease: Yes ("renal failure, no dialysis") Hx Asthma: No - Surgical History Additional Surgical History: x2 - Social History Smoking Status: Never Smoker Substance Use Type: None - Medications Home Medications: Home Medications Medication Instructions Recorded Confirmed Last Taken Type No Known Home Medications [No 04/14/17 04/14/17 Unknown History Reported Home Medications] ED Physical Exam - General Limitations: No Limitations General appearance: alert, in no apparent distress - Head Head exam: Present: atraumatic, normocephalic - Eye Eye exam: Present: normal appearance - ENT ENT exam: Present: normal orophraynx, mucous membranes moist - Neck Neck exam: Present: normal inspection. Absent: tenderness, meningismus - Respiratory Respiratory exam: Present: normal lung sounds bilaterally. Absent: respiratory distress, wheezes, rales, rhonchi - Cardiovascular Cardiovascular Exam: Present: regular rate, normal rhythm, normal heart sounds. Absent: systolic murmur, diastolic murmur, rubs, gallop - GI/Abdominal GI/Abdominal exam: Present: soft, normal bowel sounds. Absent: distended, tenderness, guarding, rebound - Extremities Exam Extremities exam: Present: normal inspection - Back Exam Back exam: Present: normal inspection - Neurological Exam Neurological exam: Present: alert, oriented X3 - Psychiatric Psychiatric exam: Present: normal affect, normal mood - Skin Skin exam: Present: warm, dry, intact, normal color. Absent: rash ED Course Vital Signs 05/12/17 05/12/17 05/13/17 20:29 20:42 00:28 Temperature 98.4 F 98.1 F 98.1 F Pulse Rate 104 H 110 H 79 Respiratory 16 16 16 Rate Blood Pressure 160/98 Blood Pressure 151/92 146/85 [Right] O2 Sat by Pulse 100 97 98 Oximetry ED Medical Decision Making - Lab Data Result diagrams: 05/12/17 20:56 05/12/17 20:56 Laboratory Results - last 24 hr 05/12/17 05/12/17 05/12/17 20:56 20:56 23:45 WBC 4.3 L RBC 3.61 L Hgb 9.5 L Hct 29.3 L MCV 81 MCH 26 L MCHC 32 RDW 13.5 Plt Count 279 Lymph % (Auto) 14.0 [place] % (Auto) 9.7 H Eos % (Auto) 2.3 Baso % (Auto) 0.6 Lymph # 0.6 L [place]mullen # 0.4 Eos # 0.1 Baso # 0.0 Seg Neutrophils % 73.4 H Seg Neutrophils # 3.1 Sodium 140 Potassium 3.7 Chloride 97.9 L Carbon Dioxide 25 Anion Gap 21 BUN 17 Creatinine 3.4 H Estimated GFR 18 BUN/Creatinine Ratio 5 Glucose 114 H Calcium 9.0 Troponin T < 0.010 < 0.010 Vital Signs - 24 hr 05/12/17 05/12/17 05/13/17 20:29 20:42 00:28 Temperature 98.4 F 98.1 F 98.1 F Pulse Rate 104 H 110 H 79 Respiratory 16 16 16 Rate Blood Pressure 160/98 Blood Pressure 151/92 146/85 [Right] O2 Sat by Pulse 100 97 98 Oximetry - Medical Decision Making Ms. Calvo presents to ED for spurious potassium level. Normal potassium 3.7 here in ED. dc'd home with reassurance Critical care attestation.: If time is entered above; I have spent that time in minutes in the direct care of this critically ill patient, excluding procedure time. ED Disposition Clinical Impression: CKD (chronic kidney disease) Disposition: DC-01 TO HOME OR SELFCARE Is pt being admited?: No Does the pt Need Aspirin: No Condition: Stable Instructions: Chronic Kidney Disease (ED) Additional Instructions: your potassium is normal 3.7 Time of Disposition: 00:59
== END 2017-05-13 01:06 | disposition home or self-care (01) ==
LOC: ED 20:22
DX: E87.6 Hypokalemia (principal); I12.9 Hypertensive chronic kidney disease with stage 1 through stage 4 chronic kidney disease, or unspecified chronic kidney disease; N18.9 Chronic kidney disease, unspecified; K21.9 Gastro-esophageal reflux disease without esophagitis
CPT/HCPCS: 36415; 80048; 84484; 85025; 93005; 93010

== ENCOUNTER 2018-03-04 02:41 | Inpatient (IN) | payer MEDICAID, OTHER ==
[2018-03-04 03:56] LABS: Calcium 8.5 mg/dL (8.4-10.2)
[2018-03-04 04:04] LABS: Basophils % (Auto) 0.8 % (0.0-1.8); Eosinophils # (Auto) 0.2 K/mm3 (0.0-0.4); Eosinophils % (Auto) 3.2 % (0.0-4.3); Hematocrit 25.4 % (30.3-42.9); Hemoglobin 8.9 gm/dl (10.1-14.3); Lymphocytes # (Auto) 0.7 K/mm3 (1.2-5.4); Lymphocytes % (Auto) 13.6 % (13.4-35.0); Mean Corpuscular HGB Conc 35 % (30-34); Mean Corpuscular Volume 89 fl (79-97); Monocytes # (Auto) 0.6 K/mm3 (0.0-0.8); Monocytes % (Auto) 11.3 % (0.0-7.3); Platelet Count 322 K/mm3 (140-440); Red Blood Count 2.85 M/mm3 (3.65-5.03); Red Cell Distribution Width 15.2 % (13.2-15.2)
[2018-03-04] MEDS ORDERED: NORMODYNE IV ONE (04:14)
--- NOTE | 2018-03-04 04:38 | Emergency Department Report ---
ED General Adult HPI - General Chief complaint: High BP Stated complaint: HTN Time Seen by Provider: 03/04/18 04:13 Source: patient Mode of arrival: Ambulatory Limitations: No Limitations - History of Present Illness Initial comments: Patient presented to the emergency room weight high blood pressure. He denies any chest pain or shortness of breath. She delivered a baby 3 weeks ago and she had hemodialysis yesterday. She has no other complaints. -: Sudden Severity scale (0 -10): 0 Treatments Prior to Arrival: other (Labetalol 200mg PO ) - Related Data Home Medications Medication Instructions Recorded Confirmed Last Taken Vits96/Iron Fum/Folic 1 each PO DAILY 11/04/17 02/10/18 Unknown [ Tablet] Previous Rx's Medication Instructions Recorded Last Taken Type Ibuprofen [Motrin] 800 mg PO Q8HR PRN #60 tablet 02/13/18 Unknown Rx oxyCODONE /ACETAMINOPHEN [Percocet 1 tab PO Q6HR PRN #30 tablet 02/13/18 Unknown Rx 5/325] Allergies Allergy/AdvReac Type Severity Reaction Status Date / Time nitrofurantoin Allergy legs Verified 11/06/17 21:09 [From Macrobid] tingle, hypertension ED Review of Systems ROS: Stated complaint: HTN Other details as noted in HPI Comment: All other systems reviewed and negative Constitutional: denies: chills, fever Eyes: denies: eye pain, eye discharge, vision change ENT: denies: ear pain, throat pain Respiratory: denies: cough, shortness of breath, wheezing Cardiovascular: denies: chest pain, palpitations Endocrine: no symptoms reported Gastrointestinal: denies: abdominal pain, nausea, diarrhea Genitourinary: denies: urgency, dysuria, discharge Musculoskeletal: denies: back pain, joint swelling, arthralgia Skin: denies: rash, lesions Neurological: denies: headache, weakness, paresthesias Psychiatric: denies: anxiety, depression Hematological/Lymphatic: denies: easy bleeding, easy bruising ED Past Medical Hx - Past Medical History Previous Medical History?: Yes Hx Hypertension: Yes (uncontrolled) Hx Congestive Heart Failure: No Hx Diabetes: No Hx Deep Vein Thrombosis: No Hx GERD: Yes Hx Renal Disease: Yes ("renal failure, no dialysis") Hx Sickle Cell Disease: No Hx Seizures: No Hx Asthma: No Hx COPD: No Hx HIV: No - Surgical History Past Surgical History?: Yes Additional Surgical History: x2 - Social History Smoking Status: Never Smoker Substance Use Type: None - Medications Home Medications: Home Medications Medication Instructions Recorded Confirmed Last Taken Type Vits96/Iron Fum/Folic 1 each PO DAILY 11/04/17 02/10/18 Unknown History [ Tablet] Ibuprofen [Motrin] 800 mg PO Q8HR PRN #60 tablet 02/13/18 Unknown Rx oxyCODONE /ACETAMINOPHEN [Percocet 1 tab PO Q6HR PRN #30 tablet 02/13/18 Unknown Rx 5/325] ED Physical Exam - General Limitations: No Limitations General appearance: alert, in no apparent distress - Head Head exam: Present: atraumatic, normocephalic - Eye Eye exam: Present: normal appearance, PERRL Pupils: Present: normal accommodation - ENT ENT exam: Present: normal exam, mucous membranes moist - Neck Neck exam: Present: normal inspection, full ROM. Absent: tenderness - Respiratory Respiratory exam: Present: normal lung sounds bilaterally. Absent: respiratory distress, wheezes - Cardiovascular Cardiovascular Exam: Present: regular rate, normal rhythm. Absent: systolic murmur, diastolic murmur, rubs, gallop - GI/Abdominal GI/Abdominal exam: Present: soft, normal bowel sounds - Extremities Exam Extremities exam: Present: normal inspection, normal capillary refill - Back Exam Back exam: Present: normal inspection - Neurological Exam Neurological exam: Present: alert, oriented X3, CN II-XII intact - Psychiatric Psychiatric exam: Present: normal affect, normal mood - Skin Skin exam: Present: warm, dry, intact, normal color. Absent: rash ED Course Vital Signs 03/04/18 03/04/18 03:17 04:10 Temperature 98.8 F Pulse Rate 79 88 Respiratory 18 16 Rate Blood Pressure 172/116 Blood Pressure 176/114 [Left] O2 Sat by Pulse 100 98 Oximetry - Consultations Consultation #1: 03/04/18 04:[address] Sandeep Brooke (OBGYN), she will admit patient for further management. ED Medical Decision Making - Lab Data Result diagrams: 03/04/18 03:31 03/04/18 03:31 Lab Results 03/04/18 03/04/18 Range/Units 03:31 03:31 WBC 4.9 (4.5-11.0) K/mm3 RBC 2.85 L (3.65-5.03) M/mm3 Hgb 8.9 L (10.1-14.3) gm/dl Hct 25.4 L (30.3-42.9) % MCV 89 (79-97) fl MCH 31 (28-32) pg MCHC 35 H (30-34) % RDW 15.2 (13.2-15.2) % Plt Count 322 (140-440) K/mm3 Lymph % (Auto) 13.6 (13.4-35.0) % [place] % (Auto) 11.3 H (0.0-7.3) % Eos % (Auto) 3.2 (0.0-4.3) % Baso % (Auto) 0.8 (0.0-1.8) % Lymph # 0.7 L (1.2-5.4) K/mm3 [place] # 0.6 (0.0-0.8) K/mm3 Eos # 0.2 (0.0-0.4) K/mm3 Baso # 0.0 (0.0-0.1) K/mm3 Seg Neutrophils % 71.1 H (40.0-70.0) % Seg Neutrophils # 3.5 (1.8-7.7) K/mm3 Sodium 131 L (137-145) mmol/L Potassium 5.0 (3.6-5.0) mmol/L Chloride 91.3 L (98-107) mmol/L Carbon Dioxide 32 H (22-30) mmol/L Anion Gap 13 mmol/L BUN 11 (7-17) mg/dL Creatinine 3.6 H (0.7-1.2) mg/dL Estimated GFR 17 ml/min BUN/Creatinine Ratio 3 % Glucose 101 H (65-100) mg/dL Calcium 8.5 (8.4-10.2) mg/dL - Medical Decision Making Uncontrolled Hypertension. Pre-eclampsia. Critical care attestation.: If time is entered above; I have spent that time in minutes in the direct care of this critically ill patient, excluding procedure time. ED Disposition Clinical Impression: Uncontrolled hypertension Pre-eclampsia Qualifiers: Trimester: unspecified trimester Qualified Code(s): O14.90 - Unspecified pre- eclampsia, unspecified trimester Disposition: OP ADMIT IP TO THIS HOSP Is pt being admited?: Yes Does the pt Need Aspirin: No Condition: Stable Instructions: Hypertension (ED) Referrals: JACQUELIN QUINTANILLA [Primary Care Provider] - 3-5 Days Time of Disposition: 04:52
[2018-03-04 04:51] LABS: INR 0.95 (0.87-1.13)
[2018-03-04 04:52] LABS: Partial Thromboplastin Time 28.2 Sec. (24.2-36.6)
[2018-03-04] MEDS ORDERED: MAGNESIUM SULFATE 4GM/100ML 4 GM/100 ML BAG IV ONE (04:57)
[2018-03-04] MEDS ORDERED: APRESOLINE IV PRN (04:57)
[2018-03-04] MEDS ORDERED: MAGNESIUM SULFATE 40GM/1000ML 40 GM/1,000 ML BAG IV SCH (05:00)
[2018-03-04 06:30] LABS: Alanine Aminotransferase 18 units/L (7-56); Albumin 3.9 g/dL (3.9-5)
[2018-03-04] MEDS: LACTATED RINGERS 1,000 ML IV SCH ×2 (07:00→19:33)
[2018-03-04 07:01] LABS: Bilirubin,Direct < 0.2 mg/dL (0-0.2)
[2018-03-04] MEDS: NORMODYNE PO SCH ×2 (09:33→22:12)
[2018-03-04] MEDS ORDERED: PERCOCET 5/325 PO PRN (11:57)
--- NOTE | 2018-03-04 12:58 | History and Physical Report ---
History of Present Illness Date of examination: 03/04/18 Date of admission: 03/04/18 04:57 Chief complaint: elevated blood pressure History of present illness: The patient is a 37-year-old -[place] female 4 para 3104 with h/o chronic hypertension, end stage renal disease requiring dialysis (Mon, Wed, Fri) s/p repeat section with tubal ligation on 02/09/18 who presents with elevated blood pressures 170s/110s despite compliance with her blood pressure medication (Labetalol 400 mg BID) concerning for superimposed preeclampsia. She is followed by Dr Looney, Nephrology. 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 Family/Genetic History: diabetes, hypertension Social history: no significant social history, - Obstetrical History : 4 Para: 4 Hx # Term Pregnancies: 3 Number of Pregnancies: 1 Spontaneous Abortions: 0 Induced : 0 Number of Living Children: 4 Medications and Allergies Allergies Allergy/AdvReac Type Severity Reaction Status Date / Time nitrofurantoin Allergy legs Verified 11/06/17 21:09 [From Macrobid] tingle, hypertension Home Medications Medication Instructions Recorded Confirmed Last Taken Type Vits96/Iron Fum/Folic 1 each PO DAILY 11/04/17 02/10/18 Unknown History [ Tablet] Ibuprofen [Motrin] 800 mg PO Q8HR PRN #60 tablet 02/13/18 Unknown Rx oxyCODONE /ACETAMINOPHEN [Percocet 1 tab PO Q6HR PRN #30 tablet 02/13/18 Unknown Rx 5/325] Active Meds: Active Medications Hydralazine HCl (Apresoline) 5 mg IV Q30MIN PRN PRN Reason: Hypertension Last Admin: 03/04/18 08:42 Dose: 5 mg Documented by: Lactated Ringer's (Lactated Ringers) 1,000 mls @ 125 mls/hr IV DIRECT PONCE Last Admin: 03/04/18 07:00 Dose: 125 mls/hr Documented by: Magnesium Sulfate (Magnesium Sulfate 40gm/1000ml) 40 gm in 1,000 mls @ 25 mls/hr IV DIRECT PONCE Last Admin: 03/04/18 07:00 Dose: 1 gm/hr, 25 mls/hr Documented by: Labetalol HCl (Normodyne) 400 mg PO BID PONCE Last Admin: 03/04/18 09:33 Dose: 400 mg Documented by: Oxycodone/Acetaminophen (Percocet 5/325) 2 tab PO Q4H PRN PRN Reason: Pain, Moderate (4-6) Review of Systems All systems: negative - Vital Signs Vital signs: Vital Signs Temp Pulse Resp BP Pulse Ox 98.8 F 79 18 172/116 100 03/04/18 03:17 03/04/18 03:17 03/04/18 03:17 03/04/18 03:17 03/04/18 03:17 Temp Pulse Resp BP Pulse Ox 98.8 F 101 H 16 135/80 98 03/04/18 03:17 03/04/18 12:54 03/04/18 04:10 03/04/18 12:49 03/04/18 12:54 - Physical Exam Breasts: Positive: deferred Cardiovascular: Regular rate Lungs: Positive: Clear to auscultation Abdomen: Positive: soft Extremities: Positive: normal Results Result Diagrams: 03/04/18 03:31 03/04/18 03:31 Abnormal lab results 03/04/18 03/04/18 03/04/18 Range/Units 03:31 03:31 10:12 RBC 2.85 L (3.65-5.03) M/mm3 Hgb 8.9 L (10.1-14.3) gm/dl Hct 25.4 L (30.3-42.9) % MCHC 35 H (30-34) % [place] % (Auto) 11.3 H (0.0-7.3) % Lymph # 0.7 L (1.2-5.4) K/mm3 Seg Neutrophils % 71.1 H (40.0-70.0) % Sodium 131 L (137-145) mmol/L Chloride 91.3 L (98-107) mmol/L Carbon Dioxide 32 H (22-30) mmol/L Creatinine 3.6 H (0.7-1.2) mg/dL Glucose 101 H (65-100) mg/dL Magnesium 4.80 H (1.7-2.3) mg/dL Total Protein (6.3-8.2) g/dL 03/04/18 Range/Units Unknown RBC (3.65-5.03) M/mm3 Hgb (10.1-14.3) gm/dl Hct (30.3-42.9) % MCHC (30-34) % [place] % (Auto) (0.0-7.3) % Lymph # (1.2-5.4) K/mm3 Seg Neutrophils % (40.0-70.0) % Sodium (137-145) mmol/L Chloride (98-107) mmol/L Carbon Dioxide (22-30) mmol/L Creatinine (0.7-1.2) mg/dL Glucose (65-100) mg/dL Magnesium (1.7-2.3) mg/dL Total Protein 6.2 L (6.3-8.2) g/dL All other labs normal. Assessment and Plan A: Chronic hypertension with superimposed preeclampsia End Stage Renal Disease requiring dialysis Mon Tue Fr(last 03/03/18) Anemia of chronic disease P: Admit for IV magnesium sulfate for seizure prophylaxis at renal dosing, mag levels every 6 hours Continue labetalol 400 mg BID and increase if needed Closely monitor clinical status
[2018-03-04] MEDS ORDERED: TYLENOL PO PRN (13:06)
[2018-03-04 16:59] LABS: Uric Acid 3.8 mg/dL (3.5-7.6)
[2018-03-05] MEDS: NORMODYNE PO SCH (09:30)
--- NOTE | 2018-03-05 11:05 | Progress Note ---
Assessment and Plan A: Chronic hypertension with superimposed preeclampsia s/p magnesium sulfate x 24 hrs for seizure prophylaxis End Stage Renal Disease requiring dialysis Tue (last 03/03/18) Anemia of chronic disease P: Discharge today with Labetalol 400 mg BID Plan for dialysis tomorrow- already scheduled Postop appt this Wednesday March 07, 2018 Subjective - Subjective Date of service: 03/05/18 Principal diagnosis: preeclampsia, End Stage Renal Disease Interval history: Pt without complaints and is anxious to go home. Patient reports: appetite normal, voiding normally, pain well controlled, ambulating normally Objective - Vital Signs Latest vital signs: Vital Signs Temp Pulse BP BP Pulse Ox 03/05/18 10:57 78 96 03/05/18 10:52 79 95 03/05/18 10:47 78 136/84 93 03/05/18 10:42 78 93 03/05/18 10:40 80 92 03/05/18 10:37 80 93 03/05/18 10:32 80 93 03/05/18 10:27 80 93 03/05/18 10:22 80 93 03/05/18 10:17 80 152/88 93 03/05/18 10:14 84 94 03/05/18 10:12 86 93 03/05/18 10:07 85 92 03/05/18 10:02 84 93 03/05/18 09:57 85 94 03/05/18 09:52 82 93 03/05/18 09:51 96 H 94 03/05/18 09:47 82 151/89 94 03/05/18 09:45 79 94 03/05/18 09:42 83 93 03/05/18 09:40 98 H 94 03/05/18 09:37 83 95 03/05/18 09:32 89 96 03/05/18 09:30 98.1 F 85 150/82 03/05/18 09:27 99 H 93 03/05/18 09:26 81 91 03/05/18 09:22 83 95 03/05/18 09:20 83 94 03/05/18 09:17 87 150/92 96 03/05/18 08:34 91 03/05/18 08:10 83 154/95 154/95 03/05/18 08:09 83 99 03/05/18 08:04 94 H 97 03/05/18 07:59 90 97 03/05/18 07:55 88 157/102 157/102 03/05/18 07:54 91 H 96 03/05/18 07:49 94 H 97 03/05/18 07:44 83 96 03/05/18 07:40 91 H 151/91 151/91 03/05/18 07:39 84 96 03/05/18 07:34 83 94 03/05/18 07:29 85 94 03/05/18 07:27 86 94 03/05/18 07:25 80 154/91 154/91 03/05/18 07:24 94 H 99 03/05/18 07:19 83 95 03/05/18 07:18 83 94 03/05/18 07:14 86 94 03/05/18 07:12 89 94 03/05/18 07:10 93 H 163/103 163/103 03/05/18 07:09 99 H 98 03/05/18 07:06 88 93 03/05/18 07:04 90 97 03/05/18 07:01 90 94 03/05/18 06:59 95 H 94 03/05/18 06:55 93 H 162/96 92 03/05/18 06:54 95 H 94 03/05/18 06:49 89 96 03/05/18 06:47 94 H 93 03/05/18 06:44 86 96 03/05/18 06:42 93 H 92 03/05/18 06:40 84 150/90 03/05/18 06:39 81 97 03/05/18 06:34 82 96 03/05/18 06:29 81 95 03/05/18 06:25 83 154/93 03/05/18 06:24 81 96 03/05/18 06:19 81 96 03/05/18 06:14 81 96 03/05/18 06:10 85 151/94 03/05/18 06:09 82 95 03/05/18 06:04 86 95 03/05/18 05:59 85 96 03/05/18 05:55 85 150/93 03/05/18 05:54 81 98 03/05/18 05:49 81 99 03/05/18 05:44 82 98 03/05/18 05:40 82 146/95 03/05/18 05:39 81 98 03/05/18 05:34 83 97 03/05/18 05:29 91 H 98 03/05/18 05:25 83 149/94 03/05/18 05:24 84 98 03/05/18 05:19 84 98 03/05/18 05:14 82 100 03/05/18 05:10 87 152/92 03/05/18 05:09 84 96 03/05/18 05:04 87 97 03/05/18 04:59 83 96 03/05/18 04:55 83 146/87 03/05/18 04:54 92 H 97 03/05/18 04:53 89 94 03/05/18 04:49 91 H 96 03/05/18 04:44 89 97 03/05/18 04:42 94 H 94 03/05/18 04:40 93 H 157/92 03/05/18 04:39 95 H 97 03/05/18 04:34 86 97 03/05/18 04:29 87 96 03/05/18 04:25 85 138/79 03/05/18 04:24 91 H 98 03/05/18 04:19 94 H 99 03/05/18 04:14 88 97 03/05/18 04:10 88 144/81 03/05/18 04:09 83 97 03/05/18 04:04 84 96 03/05/18 03:59 86 96 03/05/18 03:55 85 136/76 03/05/18 03:54 84 96 03/05/18 03:49 83 96 03/05/18 03:44 82 96 03/05/18 03:40 86 137/77 03/05/18 03:39 85 96 03/05/18 03:34 84 96 03/05/18 03:29 83 97 03/05/18 03:25 81 136/76 03/05/18 03:24 81 97 03/05/18 03:19 80 96 03/05/18 03:14 83 99 03/05/18 03:10 86 160/107 03/05/18 03:09 79 98 03/05/18 03:04 79 97 03/05/18 02:59 79 97 03/05/18 02:55 81 167/110 03/05/18 02:54 82 96 03/05/18 02:51 83 94 03/05/18 02:49 86 95 03/05/18 02:45 85 91 03/05/18 02:44 78 98 03/05/18 02:40 83 165/108 03/05/18 02:39 83 98 03/05/18 02:34 80 97 03/05/18 02:29 79 97 03/05/18 02:25 85 153/106 03/05/18 02:24 78 96 03/05/18 02:19 78 98 03/05/18 02:14 79 96 03/05/18 02:10 85 146/102 03/05/18 02:09 79 96 03/05/18 02:04 80 97 03/05/18 01:59 78 97 03/05/18 01:55 83 148/102 03/05/18 01:54 79 96 03/05/18 01:49 78 96 03/05/18 01:44 79 97 03/05/18 01:40 82 153/104 03/05/18 01:39 79 97 03/05/18 01:34 81 96 03/05/18 01:29 78 96 03/05/18 01:25 83 153/104 03/05/18 01:24 79 96 03/05/18 01:19 79 97 03/05/18 01:14 91 H 97 03/05/18 01:13 81 93 03/05/18 01:10 86 152/100 03/05/18 01:09 80 97 03/05/18 01:04 84 97 03/05/18 00:59 81 97 03/05/18 00:55 87 153/100 03/05/18 00:54 84 97 03/05/18 00:49 85 95 03/05/18 00:48 82 93 03/05/18 00:44 88 97 03/05/18 00:42 86 93 03/05/18 00:40 87 158/103 03/05/18 00:39 89 99 03/05/18 00:35 88 93 03/05/18 00:34 85 97 03/05/18 00:29 82 94 03/05/18 00:25 86 155/99 03/05/18 00:24 83 94 03/05/18 00:19 91 H 96 03/05/18 00:15 84 93 03/05/18 00:14 84 94 03/05/18 00:10 85 148/97 94 03/05/18 00:09 83 94 03/05/18 00:05 83 94 03/05/18 00:04 82 95 03/04/18 23:59 84 93 03/04/18 23:55 92 H 163/104 03/04/18 23:54 86 96 03/04/18 23:53 93 H 94 03/04/18 23:49 83 94 03/04/18 23:48 83 94 03/04/18 23:44 82 96 03/04/18 23:42 90 92 03/04/18 23:40 89 151/96 03/04/18 23:39 84 94 03/04/18 23:36 88 90 03/04/18 23:34 84 99 03/04/18 23:30 89 93 03/04/18 23:29 83 96 03/04/18 23:25 88 159/100 03/04/18 23:24 85 96 03/04/18 23:23 83 94 03/04/18 23:19 85 95 03/04/18 23:15 85 94 03/04/18 23:14 83 98 03/04/18 23:10 90 154/97 03/04/18 23:09 84 96 03/04/18 23:04 84 96 03/04/18 22:59 86 96 03/04/18 22:55 92 H 164/106 03/04/18 22:54 87 96 03/04/18 22:49 87 95 03/04/18 22:44 89 99 03/04/18 22:40 96 H 167/104 03/04/18 22:39 94 H 99 03/04/18 22:38 96 H 93 03/04/18 22:34 95 H 96 03/04/18 22:29 96 H 98 03/04/18 22:25 93 H 165/104 03/04/18 22:24 91 H 98 03/04/18 22:19 94 H 97 03/04/18 22:14 101 H 99 03/04/18 22:13 104 H 93 03/04/18 22:12 97 H 171/107 03/04/18 22:10 99 H 171/107 03/04/18 22:09 97 H 98 03/04/18 22:04 96 H 100 03/04/18 21:59 104 H 98 03/04/18 21:58 106 H 92 03/04/18 21:55 99 H 169/103 03/04/18 21:54 96 H 98 03/04/18 21:49 94 H 97 03/04/18 21:44 96 H 96 03/04/18 21:40 97 H 172/104 03/04/18 21:39 95 H 99 03/04/18 21:37 95 H 94 03/04/18 21:34 92 H 96 03/04/18 21:29 95 H 96 03/04/18 21:25 93 H 164/104 03/04/18 21:24 102 H 98 03/04/18 21:19 95 H 98 03/04/18 21:14 103 H 99 03/04/18 21:10 100 H 171/107 03/04/18 21:09 106 H 97 03/04/18 21:04 98 H 96 03/04/18 20:59 98 H 97 03/04/18 20:55 99 H 151/95 03/04/18 20:54 99 H 95 03/04/18 20:49 108 H 98 03/04/18 20:44 102 H 97 03/04/18 20:40 96 H 150/88 03/04/18 20:39 101 H 97 03/04/18 20:34 94 H 98 03/04/18 20:29 94 H 97 03/04/18 20:25 98 H 152/87 03/04/18 20:24 94 H 97 03/04/18 20:19 94 H 96 03/04/18 20:14 96 H 96 03/04/18 20:10 97 H 159/101 03/04/18 20:09 97 H 100 03/04/18 20:04 101 H 98 03/04/18 19:59 94 H 97 03/04/18 19:55 94 H 169/110 03/04/18 19:54 94 H 98 03/04/18 19:49 96 H 98 03/04/18 19:44 95 H 96 03/04/18 19:40 95 H 166/105 03/04/18 19:39 96 H 96 03/04/18 19:36 97 H 94 03/04/18 19:34 97 H 98 03/04/18 19:29 100 H 97 03/04/18 19:24 94 H 162/102 99 03/04/18 19:23 98 H 155/95 03/04/18 19:22 96 H 94 03/04/18 19:19 98 H 99 03/04/18 19:14 103 H 98 03/04/18 19:09 99 H 98 03/04/18 19:04 101 H 98 03/04/18 18:59 95 H 94 03/04/18 18:56 96 H 94 03/04/18 18:54 99 H 97 03/04/18 18:53 104 H 152/89 152/89 03/04/18 18:49 94 H 95 03/04/18 18:45 94 H 94 03/04/18 18:44 93 H 95 03/04/18 18:39 93 H 95 03/04/18 18:36 92 H 94 03/04/18 18:34 93 H 94 03/04/18 18:31 92 H 94 03/04/18 18:29 92 H 94 03/04/18 18:25 92 H 94 03/04/18 18:24 93 H 95 03/04/18 18:23 100 H 155/89 155/89 03/04/18 18:19 93 H 94 03/04/18 18:14 97 H 95 03/04/18 18:09 95 H 96 03/04/18 18:08 93 H 94 03/04/18 18:04 94 H 96 03/04/18 18:02 92 H 94 03/04/18 17:59 93 H 96 03/04/18 17:54 99 H 95 03/04/18 17:53 95 H 155/100 155/100 03/04/18 17:52 94 H 93 03/04/18 17:49 94 H 97 03/04/18 17:44 95 H 97 03/04/18 17:39 92 H 97 03/04/18 17:34 94 H 96 03/04/18 17:29 94 H 96 03/04/18 17:24 95 H 95 03/04/18 17:23 96 H 159/84 159/84 03/04/18 17:21 91 H 94 03/04/18 17:19 91 H 94 03/04/18 17:15 91 H 94 03/04/18 17:14 94 H 93 03/04/18 17:09 95 H 90 03/04/18 17:04 92 H 95 03/04/18 16:59 94 H 96 03/04/18 16:54 92 H 99 03/04/18 16:53 93 H 157/98 157/98 03/04/18 16:49 92 H 98 03/04/18 16:44 92 H 96 03/04/18 16:39 91 H 98 03/04/18 16:34 89 96 03/04/18 16:29 88 97 03/04/18 16:24 88 96 03/04/18 16:19 91 H 148/90 97 03/04/18 16:18 104 H 94 03/04/18 16:14 95 H 98 03/04/18 16:09 94 H 98 03/04/18 16:04 89 145/88 97 03/04/18 16:00 93 H 92 03/04/18 15:59 94 H 95 03/04/18 15:54 88 95 03/04/18 15:50 89 94 03/04/18 15:49 90 145/84 145/84 94 03/04/18 15:44 94 H 96 03/04/18 15:41 91 H 94 03/04/18 15:39 87 97 03/04/18 15:34 88 143/86 143/86 97 03/04/18 15:29 95 H 97 03/04/18 15:24 90 98 03/04/18 15:19 93 H 141/84 141/84 97 03/04/18 15:14 93 H 98 03/04/18 15:09 91 H 97 03/04/18 15:05 92 H 129/74 03/04/18 15:04 92 H 129/74 99 03/04/18 14:59 91 H 97 03/04/18 14:54 91 H 98 03/04/18 14:49 93 H 150/95 150/95 98 03/04/18 14:44 92 H 98 03/04/18 14:39 91 H 98 03/04/18 14:34 89 140/87 140/87 99 03/04/18 14:29 88 99 03/04/18 14:24 93 H 97 03/04/18 14:20 88 143/92 03/04/18 14:19 88 143/92 98 03/04/18 14:14 96 H 98 03/04/18 14:09 88 98 03/04/18 14:04 88 128/77 128/77 99 03/04/18 13:59 95 H 97 03/04/18 13:54 94 H 98 03/04/18 13:49 91 H 125/78 125/78 97 03/04/18 13:44 92 H 98 03/04/18 13:39 90 99 03/04/18 13:34 88 137/83 137/83 98 03/04/18 13:29 92 H 98 03/04/18 13:25 91 H 94 03/04/18 13:24 98 H 97 03/04/18 13:19 96 H 135/83 135/83 97 03/04/18 13:14 89 99 03/04/18 13:09 91 H 97 03/04/18 13:04 86 143/91 143/91 98 03/04/18 12:59 94 H 97 03/04/18 12:54 101 H 98 03/04/18 12:49 88 135/80 135/80 98 03/04/18 12:44 99 H 97 03/04/18 12:39 92 H 97 03/04/18 12:34 92 H 144/86 144/86 96 03/04/18 12:29 90 95 03/04/18 12:24 96 H 98 03/04/18 12:19 89 141/92 141/92 98 03/04/18 12:14 86 98 03/04/18 12:13 90 94 03/04/18 12:09 88 97 03/04/18 12:08 90 93 03/04/18 12:04 87 134/90 134/90 96 03/04/18 12:02 85 93 03/04/18 11:59 86 95 03/04/18 11:54 84 96 03/04/18 11:49 93 H 142/91 142/91 97 03/04/18 11:44 89 97 03/04/18 11:39 83 96 03/04/18 11:34 89 137/87 137/87 97 03/04/18 11:29 85 96 03/04/18 11:24 84 96 03/04/18 11:19 88 145/89 145/89 96 03/04/18 11:14 86 97 03/04/18 11:09 85 96 03/04/18 11:04 93 H 141/90 141/90 96 Intake and Output 03/04/18 03/05/18 03/05/18 22:59 06:59 14:59 Intake Total 1000 Output Total 1850 1450 Balance -850 -1450 Intake: IV 1000 Lactated Ringers 1,000 ml 1000 @ 125 mls/hr IV DIRECT PONCE Rx#:[id number] Output: Urine 1850 1450 Indwelling Catheter 1850 1450 Other: Total, Output Amount 600 1450 - Exam Breasts: Present: deferred Cardiovascular: Present: Regular rate Lungs: Present: Clear to auscultation Abdomen: Present: soft Uterus: Present: fundal height below umbilicus Extremities: Present: normal Incision: Present: intact - Labs Labs: Abnormal lab results 03/04/18 03/04/18 03/04/18 Range/Units 10:12 16:04 16:30 Magnesium 4.80 H 7.00 H (1.7-2.3) mg/dL Lactate Dehydrogenase 272 H (91-180) units/L 03/04/18 03/05/18 Range/Units 21:19 04:21 Magnesium 7.80 H 7.10 H (1.7-2.3) mg/dL Lactate Dehydrogenase (91-180) units/L
--- NOTE | 2018-03-05 11:15 | Discharge Summary ---
Providers - Providers Date of Admission: 03/04/18 04:57 Date of discharge: 03/05/18 Attending physician: EUNICE POLANCO Primary care physician: JACQUELIN QUINTANILLA Hospitalization Reason for admission: other ( preeclampsia ) Procedure details: IV Magnesium administration Incision: intact Hospital course: Pt was admitted with preeclampsia. She received 24 hrs for IV Magnesium sulfate. She also had serial blood pressure measurements and antihypertensive medication. She will be dialyzed tomorrow and follow up in the office on Tuesday. Condition at discharge: Stable Disposition: [id number] TO HOME OR SELFCARE - Discharge Diagnoses (1) Preeclampsia in period Status: Acute (2) Chronic hypertension Status: Acute (3) ESRD (end stage renal disease) Status: Acute (4) Anemia Status: Chronic Qualifiers: Anemia type: unspecified type Qualified Code(s): D64.9 - Anemia, unspecified Plan - Discharge Medications Prescriptions: Labetalol [Normodyne TAB] 400 mg PO BID #120 tablet - Provider Discharge Summary Activity: routine Diet: routine Instructions: routine Additional instructions: [] Smoking cessation referral if applicable(refer to patient education folder for contact #) [] Refer to [facility] Booklet Call your doctor immediately for: * Fever > 100.5 * Heavy vaginal bleeding ( >1 pad per hour) * Severe persistent headache * Shortness of breath * Reddened, hot, painful area to leg or breast * Drainage or odor from incision. * Keep incision clean and dry at all times and follow doctor's instructions regarding bathing/showering - Follow up plan Follow up: JACQUELIN QUINTANILLA [Primary Care Provider] - 3-5 Days KIMBERLY MEJIA MD [Staff Physician] - 7 Days EUNICE POLANCO MD [Staff Physician] - 03/07/18 (as previously scheduled ) Forms: [facility] Discharge Summary
[2018-03-05 11:18] VITALS: BP 136/84
== END 2018-03-05 11:30 | disposition home or self-care (01) | DRG 776 ==
LOC: ED 02:41 → LD 04:57
PROVIDERS: ADMIT Obstetrics & Gynecology; ATTEND Obstetrics & Gynecology
DX: O11.5 Pre-existing hypertension with pre-eclampsia, complicating the puerperium (principal); N18.6 End stage renal disease; O10 Pre-existing hypertension complicating pregnancy, childbirth and the puerperium; I12.0 Hypertensive chronic kidney disease with stage 5 chronic kidney disease or end stage renal disease; O99.03 Anemia complicating the puerperium; D63.8 Anemia in other chronic diseases classified elsewhere; O99.63 Diseases of the digestive system complicating the puerperium; K21.9 Gastro-esophageal reflux disease without esophagitis; Z98.51 Tubal ligation status; Z83.3 Family history of diabetes mellitus; Z82.49 Family history of ischemic heart disease and other diseases of the circulatory system; Z79.899 Other long term (current) drug therapy
CPT/HCPCS: 36415; 80048; 80076; 83615; 83735; 84550; 85025; 85610; 85730; G0378; J0360; J3475; J7120

== ENCOUNTER 2018-10-07 03:51 | Observation (INO) | payer SELFPAY ==
[2018-10-07 05:52] LABS: Basophils % (Auto) 1.4 % (0.0-1.8); Eosinophils # (Auto) 0.2 K/mm3 (0.0-0.4); Eosinophils % (Auto) 5.9 % (0.0-4.3); Hematocrit 39.5 % (30.3-42.9); Hemoglobin 12.6 gm/dl (10.1-14.3); Lymphocytes # (Auto) 0.7 K/mm3 (1.2-5.4); Lymphocytes % (Auto) 27.4 % (13.4-35.0); Mean Corpuscular HGB Conc 32 % (30-34); Mean Corpuscular Volume 92 fl (79-97); Monocytes # (Auto) 0.3 K/mm3 (0.0-0.8); Monocytes % (Auto) 12.4 % (0.0-7.3); Platelet Count 190 K/mm3 (140-440); Red Cell Distribution Width 15.5 % (13.2-15.2)
[2018-10-07 05:54] LABS: Calcium 8.5 mg/dL (8.4-10.2)
[2018-10-07] MEDS ORDERED: NORMODYNE IV ONE (06:12)
[2018-10-07] MEDS ORDERED: D50W (25GM) Syringe IV ONE (06:14)
[2018-10-07] MEDS ORDERED: HumuLIN R IV ONE (06:15)
[2018-10-07] MEDS ORDERED: NACL 0.9% 100 ML IV PRN (07:13)
[2018-10-07] MEDS ORDERED: HEPARIN 10,000 UNITS/10 ML IV PRN (07:13)
--- NOTE | 2018-10-07 07:47 | XRay Report ---
CHEST 1 VIEW INDICATION: Chest Pain. COMPARISON: Chest x-ray from 04/27/2017 FINDINGS: Support devices: Right IJ catheter with tip in the high right atrium. Heart: Mild cardiomegaly. Lungs/Pleura: No acute air space or interstitial disease. No pneumothorax. Additional findings: None. IMPRESSION: 1. Support device as above. Signer Name: Hussain Thibodeaux MD Signed: 10/07/2018 7:42 AM Workstation Name: [id number]
--- NOTE | 2018-10-07 09:30 | History and Physical Report ---
History of Present Illness Date of examination: 10/07/18 Date of admission: 10/07/18 08:07 Chief complaint: accel htn History of present illness: 38-year-old female with past medical history of hypertension, gestational DM and ESRD presents to the emergency department with complaints of elevated blood pressure. She reports that her systolic blood pressure has been running in the 200 range for the past several days. Patient reports that she has been compliant with her medication of labetalol 400 mg twice a day. Patient states that the only time shedose was approximately 2 weeks ago. However, since that time her blood pressure has been uncontrolled. Patient also reports compliance with hemodialysis for which she went yesterday but was not completed. Patient reports having dialysis following approximately 45 minutes before it had to be discontinued due to accelerated hypertension. Patient denies any chest pain or shortness of breath. No lower extremity edema. No headache or visual disturbances. No nausea vomiting or diarrhea. No fever or chills. Past History Past Medical History: diabetes, hypertension Past Surgical History: Social history: no significant social history Family history: no significant family history Medications and Allergies Allergies Allergy/AdvReac Type Severity Reaction Status Date / Time nitrofurantoin Allergy legs Verified 11/06/17 21:09 [From Macrobid] tingle, hypertension Home Medications Medication Instructions Recorded Confirmed Last Taken Type Vits96/Iron Fum/Folic 1 each PO DAILY 11/04/17 02/10/18 Unknown History [ Tablet] Ibuprofen [Motrin] 800 mg PO Q8HR PRN #60 tablet 02/13/18 Unknown Rx oxyCODONE /ACETAMINOPHEN [Percocet 1 tab PO Q6HR PRN #30 tablet 02/13/18 Unknown Rx 5/325] Labetalol [Labetalol 200mg TAB] 400 mg PO BID #120 tablet 03/05/18 Unknown Rx Active Meds: Active Medications Heparin Sodium (Porcine) (Heparin 10,000 Units/10 Ml) 3,000 unit IV ANJALI PRN PRN Reason: hemodialysis Sodium Chloride (Nacl 0.9%) 100 mls @ 999 mls/hr IV ANJALI PRN PRN Reason: Hypotension Review of Systems All systems: negative Exam - Constitutional Vitals: Temp Pulse Resp BP Pulse Ox 98.3 F 74 13 168/104 97 10/07/18 04:14 10/07/18 09:12 10/07/18 06:30 10/07/18 09:12 10/07/18 06:30 General appearance: Present: no acute distress, well-nourished - EENT Eyes: Present: PERRL ENT: hearing intact, clear oral mucosa - Neck Neck: Present: supple, normal ROM - Respiratory Respiratory effort: normal Respiratory: bilateral: CTA - Cardiovascular Heart Sounds: Present: S1 & S2. Absent: rub, click - Extremities Extremities: pulses symmetrical, No edema Peripheral Pulses: within normal limits - Abdominal General gastrointestinal: Present: soft, non-tender, non-distended, normal bowel sounds Female genitourinary: Present: normal - Integumentary Integumentary: Present: clear, warm, dry - Musculoskeletal Musculoskeletal: gait normal, strength equal bilaterally - Psychiatric Psychiatric: appropriate mood/affect, intact judgment & insight - Neurologic Neurologic: CNII-XII intact, moves all extremities Results - Labs CBC & Chem 7: 10/07/18 05:18 10/07/18 05:18 Labs: Laboratory Last Values WBC 2.7 K/mm3 (4.5-11.0) L 10/07/18 05:18 RBC 4.30 M/mm3 (3.65-5.03) 10/07/18 05:18 Hgb 12.6 gm/dl (10.1-14.3) 10/07/18 05:18 Hct 39.5 % (30.3-42.9) 10/07/18 05:18 MCV 92 fl (79-97) 10/07/18 05:18 MCH 29 pg (28-32) 10/07/18 05:18 MCHC 32 % (30-34) 10/07/18 05:18 RDW 15.5 % (13.2-15.2) H 10/07/18 05:18 Plt Count 190 K/mm3 (140-440) 10/07/18 05:18 Lymph % (Auto) 27.4 % (13.4-35.0) 10/07/18 05:18 [place] % (Auto) 12.4 % (0.0-7.3) H 10/07/18 05:18 Eos % (Auto) 5.9 % (0.0-4.3) H 10/07/18 05:18 Baso % (Auto) 1.4 % (0.0-1.8) 10/07/18 05:18 Lymph # 0.7 K/mm3 (1.2-5.4) L 10/07/18 05:18 [place] # 0.3 K/mm3 (0.0-0.8) 10/07/18 05:18 Eos # 0.2 K/mm3 (0.0-0.4) 10/07/18 05:18 Baso # 0.0 K/mm3 (0.0-0.1) 10/07/18 05:18 Seg Neutrophils % 52.9 % (40.0-70.0) 10/07/18 05:18 Seg Neutrophils # 1.4 K/mm3 (1.8-7.7) L 10/07/18 05:18 Sodium 133 mmol/L (137-145) L 10/07/18 05:18 Potassium 5.8 mmol/L (3.6-5.0) H 10/07/18 05:18 Chloride 95.8 mmol/L (98-107) L 10/07/18 05:18 Carbon Dioxide 22 mmol/L (22-30) 10/07/18 05:18 21 mmol/L 10/07/18 05:18 BUN 39 mg/dL (7-17) H 10/07/18 05:18 9.9 mg/dL (0.7-1.2) H 10/07/18 05:18 Estimated GFR 5 ml/min 10/07/18 05:18 4 % 10/07/18 05:18 Glucose 107 mg/dL (65-100) H 10/07/18 05:18 Calcium 8.5 mg/dL (8.4-10.2) 10/07/18 05:18 0.017 ng/mL (0.00-0.029) 10/07/18 07:33 HCG, Qual Negative (Negative) 10/07/18 05:18 Assessment and Plan Assessment and plan: Accelerated hypertension. Resume labetalol at higher dose of 600 mg by mouth 3 times a day. Add labetalol IV for when necessary. We'll hold on hydralazine given patient's history of reflex tachycardia. ESRD. Continue hemodialysis per nephrology. Consultation pending. Patient reports initiation of hemodialysis approximately 7 months ago. Anemia of chronic disease. Follow H&H and transfuse for hemoglobin less than 7. Previous history of preeclampsia/PIH/gestational diabetes.
[2018-10-07] MEDS ORDERED: SODIUM CHLORIDE FLUSH SYRINGE 10 ML IV PRN (10:00)
[2018-10-07] MEDS ORDERED: IRON FUM PO SCH (10:00)
[2018-10-07] MEDS ORDERED: LOVENOX SUB-Q SCH (10:00)
[2018-10-07] MEDS ORDERED: NORMODYNE IV PRN (10:00)
[2018-10-07] MEDS ORDERED: TYLENOL PO PRN (10:00)
[2018-10-07] MEDS ORDERED: PRENATAL VITS96 PO SCH (10:00)
[2018-10-07] MEDS ORDERED: FOLIC PO SCH (10:00)
[2018-10-07] MEDS ORDERED: ZOFRAN IV PRN (10:00)
[2018-10-07] MEDS: PRENATAL VITAMIN PO SCH (10:36)
--- NOTE | 2018-10-07 12:15 | Consultation ---
History of Present Illness - Reason for Consult Consult date: 10/07/18 end stage renal disease, hyperkalemia - History of Present Illness The patient is a 38 YO female who is well known to our service with medical history significant for ESRD on nocturnal hemodialysis (MWF) and uncontrolled HTN who presented from hemodialysis unit with elevated blood pressure. Her systolic blood pressure has been running in the 200 range for the past several days. She also missed the past 2 hemodialysis treatments. Patient reports that she has been compliant with her BP meds. I have told her in the past that she need to take additional BP meds to control the BP but she refused. Hemodialysis treatment was not completed yesterday due to very high BP even after Clonidine. Patient denies any chest pain, shortness of breath, leg swelling, headache, visual disturbances, nausea vomiting, diarrhea, fever, chills, dizziness or syncope. Nephrology was consulted for further evaluation. Past History Past Medical History: dialysis, ESRD, hypertension Past Surgical History: Social history: no significant social history Family history: no significant family history Medications and Allergies Allergies Allergy/AdvReac Type Severity Reaction Status Date / Time nitrofurantoin Allergy legs Verified 11/06/17 21:09 [From Macrobid] tingle, hypertension Home Medications Medication Instructions Recorded Confirmed Last Taken Type Labetalol [Labetalol 200mg TAB] 400 mg PO BID #120 tablet 10/08/18 Unknown Rx Labetalol [Labetalol 200mg TAB] 600 mg PO TID #90 tablet 10/08/18 Unknown Rx Active Meds: Active Medications Acetaminophen (Tylenol) 650 mg PO Q4H PRN PRN Reason: Pain MILD(1-3)/Fever >100.5/SALEH Heparin Sodium (Porcine) (Heparin 10,000 Units/10 Ml) 3,000 unit IV ANJALI PRN PRN Reason: hemodialysis Heparin Sodium (Porcine) (Heparin) 5,000 unit SUB-Q Q8HR PONCE Sodium Chloride (Nacl 0.9%) 100 mls @ 999 mls/hr IV ANJALI PRN PRN Reason: Hypotension Labetalol HCl (Normodyne) 600 mg PO TID PONCE Labetalol HCl (Normodyne) 10 mg IV Q4HR PRN PRN Reason: Blood Pressure Multivitamins/Iron/Calcium ( Vitamin) 1 each PO DAILY [facility] Last Admin: 08/10/19 10:36 Dose: Not Given Documented by: Ondansetron HCl (Zofran) 4 mg IV Q8H PRN PRN Reason: Nausea And Vomiting Sodium Chloride (Sodium Chloride Flush Syringe 10 Ml) 10 ml IV BID PONCE Sodium Chloride (Sodium Chloride Flush Syringe 10 Ml) 10 ml IV PRN PRN PRN Reason: LINE FLUSH Review of Systems Constitutional: no weight loss, no weight gain, no fever, no chills, no anorexia, no fatigue, no weakness, no poor appetite Breasts: deferred Cardiovascular: high blood pressure, no chest pain, no orthopnea, no edema, no syncope, no lightheadedness, no shortness of breath, no leg edema, no decreased exercise tolerance Respiratory: no cough, no hemoptysis, no shortness of breath Gastrointestinal: no abdominal pain, no nausea, no vomiting, no diarrhea Genitourinary Female: no dysuria, no hematuria Rectal: no bleeding Integumentary: no rash, no wounds, no jaundice Neurological: no paralysis, no weakness, no convulsions, no aphasia, no change in speech, no change in mentation, no confusion, no memory loss Psychiatric: anxiety Exam - Vital Signs Vital signs: Vital Signs Temp Pulse Resp BP Pulse Ox 98.3 F 73 20 149/111 100 10/07/18 04:14 10/07/18 04:14 10/07/18 04:14 10/07/18 04:14 10/07/18 04:14 - General Appearance General appearance: well-developed, well-nourished, appears stated age, other (no distress, R IJ Tunnel catheter) EENT: ATNC, PERRL, mucous membranes moist, hearing intact, vision intact Neck: Present: neck supple, trachea midline Respiratory: Clear to Ascultation Heart: regular, S1S2, no murmurs Gastrointestinal: Present: normoactive bowel sounds. Absent: tenderness, distended Integumentary: no rash, warm and dry Neurologic: no focal deficit, no asterixis, alert and oriented x3 Musculoskeletal: Present: other (no edema) Results - Lab Results 10/08/18 05:31 10/08/18 05:31 Most recent lab results Calcium 8.5 mg/dL (8.4-10.2) 10/07/18 05:18 Assessment and Plan 1. ESRD: Patient is on maintenance hemodialysis three times a week, MWF schedule. Hemodialysis today, orders placed. Patient unable to get AVF / AVG as she dont have health insurance currently. Patient didn't pay her Medicare premium. 2. FEN: Monitor. 3. Uncontrolled Hypertension: Labetalol increased to 600 mg TID. 4. Compliance encouraged.
[2018-10-07 12:32] LABS: Hepatitis C Virus Antibody Non-Reactive (NonReactive)
[2018-10-07 12:34] LABS: Hepatitis B Surface Antigen Non-Reactive (Negative)
[2018-10-07] MEDS: NORMODYNE PO SCH ×2 (15:53→20:47)
[2018-10-07] MEDS: HEPARIN SUB-Q SCH ×2 (15:54→22:09)
[2018-10-07] MEDS: SODIUM CHLORIDE FLUSH SYRINGE 10 ML IV SCH ×2 (15:55→22:18)
[2018-10-07] MEDS ORDERED: NACL 0.9 (PRIMING MACHINE ONLY DIALYSIS) MC ONE (19:43)
[2018-10-08] MEDS: HEPARIN SUB-Q SCH (05:54)
[2018-10-08 06:05] LABS: Hematocrit 41.8 % (30.3-42.9); Hemoglobin 13.7 gm/dl (10.1-14.3); Mean Corpuscular HGB Conc 33 % (30-34); Mean Corpuscular Volume 91 fl (79-97); Platelet Count 206 K/mm3 (140-440); Red Blood Count 4.59 M/mm3 (3.65-5.03); Red Cell Distribution Width 15.5 % (13.2-15.2)
--- NOTE | 2018-10-08 08:49 | Discharge Summary ---
Providers - Providers Date of Admission: 10/07/18 08:07 Date of discharge: 10/08/18 Attending physician: RACHELLE HIGUERA 10/07/18 09:34 Consult to Physician [CONS] Routine Comment: Consulting Provider: KIMBERLY MEJIA Physician Instructions: Reason For Exam: esrd Primary care physician: VINOD KUHN Hospitalization Reason for admission: accel htn Condition: Stable Hospital course: The patient is a 38 YO female with medical history significant for ESRD on hemodialysis (MWF) and currently 32 weeks who presented to the ED with elevated blood pressure and an episode of epistaxis. She stopped taking the BP meds for the past 3 days, as she attributes her epistaxis to her labetalol. Her SBP was around 210 at home. She admitted to having intermittent N & V throughout the . Patient denies any SALEH, blurry vision, bad pain, dysuria, hematuria, cp, sob, weakness, vaginal bleeding or leakage of fluid. The patient was admitted with diagnosis of accelerated hypertension and received initially IV labetalol in the ER. Patient was restarted on her labetalol by mouth with an increase to 600 mg 3 times a day. The patient's blood pressure stabilized. Patient also received hemodialysis during hospital stay. Patient is felt to have received maximal hospital benefit and will be discharged home. Discharge time 32 minutes. Disposition: DC-01 TO HOME OR SELFCARE Time spent for discharge: 32 - Discharge Diagnoses (1) Accelerated hypertension Status: Acute (2) ESRD (end stage renal disease) Status: Acute Core Measure Documentation - Palliative Care Palliative Care/ Comfort Measures: Not Applicable - Core Measures Any of the following diagnoses?: none Exam - Constitutional Vitals: Temp Pulse Resp BP Pulse Ox 98.5 F 68 20 165/107 98 10/08/18 05:03 10/08/18 05:03 10/08/18 05:03 10/08/18 05:03 10/08/18 05:03 General appearance: Present: no acute distress, well-nourished - EENT Eyes: Present: PERRL ENT: hearing intact, clear oral mucosa - Neck Neck: Present: supple, normal ROM - Respiratory Respiratory effort: normal Respiratory: bilateral: CTA - Cardiovascular Heart Sounds: Present: S1 & S2. Absent: rub, click - Extremities Extremities: pulses symmetrical, No edema Peripheral Pulses: within normal limits - Abdominal General gastrointestinal: Present: soft, non-tender, non-distended, normal bowel sounds Female genitourinary: Present: normal - Integumentary Integumentary: Present: clear, warm, dry - Musculoskeletal Musculoskeletal: gait normal, strength equal bilaterally - Psychiatric Psychiatric: appropriate mood/affect, intact judgment & insight - Neurologic Neurologic: CNII-XII intact, moves all extremities Plan Activity: no restrictions Weight Bearing Status: Full Weight Bearing Diet: renal Follow up with: VINOD KUHN MD [Primary Care Provider] - 7 Days KIMBERLY MEJIA MD [Staff Physician] - 7 Days Prescriptions: Labetalol [Labetalol 200mg TAB] 600 mg PO TID #90 tablet Labetalol [Labetalol 200mg TAB] 400 mg PO BID #120 tablet
[2018-10-08] MEDS: NORMODYNE PO SCH (09:03)
[2018-10-08] MEDS: SODIUM CHLORIDE FLUSH SYRINGE 10 ML IV SCH (09:04)
[2018-10-08] MEDS: PRENATAL VITAMIN PO SCH ×2 (09:04→09:06)
[2018-10-08 09:11] LABS: Total Cells Counted 100
[2018-10-08 09:13] LABS: Platelet Estimate Consistent w Auto; RBC Morphology Normal
--- NOTE | 2018-10-08 10:29 | Progress Note ---
Assessment and Plan 1. ESRD: Patient is on maintenance hemodialysis three times a week, MWF schedule. Patient was last dialyzed yesterday. Patient unable to get AVF / AVG as she dont have health insurance currently. Patient didn't pay her Medicare premium. 2. FEN: Monitor. 3. Uncontrolled Hypertension: On Labetalol 600 mg TID. Lasix added. 4. Compliance encouraged. Subjective Date of service: 10/08/18 Interval history: Patient was seen and examined at the bedside. Doing ok. Objective - Vital Signs Vital signs: Vital Signs - 12hr 10/07/18 10/07/18 10/07/18 22:38 22:41 22:51 Temperature Pulse Rate Respiratory Rate Blood Pressure 128/107 128/107 115/64 O2 Sat by Pulse 99 99 Oximetry 10/07/18 10/07/18 10/07/18 23:01 23:11 23:37 Temperature Pulse Rate Respiratory Rate Blood Pressure 118/84 118/84 122/78 O2 Sat by Pulse 98 99 100 Oximetry 10/07/18 10/08/18 10/08/18 23:53 05:03 09:03 Temperature 98.5 F Pulse Rate 69 68 65 Respiratory 20 Rate Blood Pressure 144/91 165/107 174/110 O2 Sat by Pulse 98 98 Oximetry - General Appearance General appearance: well-developed, well-nourished, appears stated age, other (no distress, R IJ tunnel catheter) EENT: ATNC, PERRL, mucous membranes moist, hearing intact, vision intact Neck: supple Respiratory: Present: Clear to Ascultation Cardiology: regular, S1S2, no murmurs Gastrointestinal: normoactive bowel sounds, no tenderness, no distended Integumentary: no rash, warm and dry Neurologic: no focal deficit, no asterixis, alert and oriented x3 Musculoskeletal: other (no edema) - Lab 10/08/18 05:31 10/08/18 05:31 Most recent lab results Calcium 9.0 mg/dL (8.4-10.2) 10/08/18 05:31 Medications & Allergies - Medications Allergies/Adverse Reactions: Allergies nitrofurantoin [From Macrobid] Allergy (Verified 11/06/17 21:09) legs tingle, hypertension Home Medications: Home Medications Medication Instructions Recorded Confirmed Last Taken Type Labetalol [Labetalol 200mg TAB] 400 mg PO BID #120 tablet 10/08/18 Unknown Rx Labetalol [Labetalol 200mg TAB] 600 mg PO TID #90 tablet 10/08/18 Unknown Rx Active Medications: Generic Name Dose Route Start Last Admin Trade Name Freq PRN Reason Stop Dose Admin Acetaminophen 650 mg 10/07/18 10:00 Tylenol PO Q4H PRN Pain MILD(1-3)/Fever >100.5/SALEH Heparin Sodium (Porcine) 3,000 unit 10/07/18 07:13 Heparin 10,000 Units/10 Ml IV ANJALI PRN hemodialysis Heparin Sodium (Porcine) 5,000 unit 10/07/18 14:00 10/08/18 05:54 Heparin SUB-Q 5,000 unit Q8HR PONCE Administration Sodium Chloride 100 mls @ 999 mls/hr 10/07/18 07:13 Nacl 0.9% IV ANJALI PRN Hypotension Labetalol HCl 600 mg 10/07/18 14:00 10/08/18 09:03 Normodyne PO 600 mg TID PONCE Administration Labetalol HCl 10 mg 10/07/18 10:00 10/07/18 12:46 Normodyne IV 10 mg Q4HR PRN Administration Blood Pressure Multivitamins/Iron/Calcium 1 each 10/07/18 10:00 10/08/18 09:06 Vitamin PO Not Given DAILY PONCE Ondansetron HCl 4 mg 10/07/18 10:00 Zofran IV Q8H PRN Nausea And Vomiting Sodium Chloride 10 ml 10/07/18 10:00 10/08/18 09:04 Sodium Chloride Flush Syringe 10 Ml IV 10 ml BID PONCE Administration Sodium Chloride 10 ml 10/07/18 10:00 Sodium Chloride Flush Syringe 10 Ml IV PRN PRN LINE FLUSH
[2018-10-08] MEDS ORDERED: LASIX PO SCH (11:00)
[2018-10-08 11:50] VITALS: BP 142/92
== END 2018-10-08 14:50 | disposition home or self-care (01) ==
LOC: ED 03:51 → 3A 08:07
PROVIDERS: ADMIT Hospitalist; ATTEND Hospitalist
DX: I12.0 Hypertensive chronic kidney disease with stage 5 chronic kidney disease or end stage renal disease (principal); N18.6 End stage renal disease; D63.1 Anemia in chronic kidney disease; E87.5 Hyperkalemia; E11.22 Type 2 diabetes mellitus with diabetic chronic kidney disease
CPT/HCPCS: 36415; 71045; 80048; 80074; 82962; 84484; 84703; 85007; 85025; 93005; 93010; 96372; 96374; 96375; 96376; 99284; G0257; G0378; J1644; J7030; J1815

== ENCOUNTER 2018-10-09 02:10 | Emergency (ER) | payer SELFPAY ==
[2018-10-09] MEDS ORDERED: CATAPRES PO ONE (02:35)
[2018-10-09] MEDS ORDERED: CATAPRES ONE (02:36)
--- NOTE | 2018-10-09 02:56 | Emergency Department Report ---
ED General Adult HPI - General Chief complaint: High BP Stated complaint: HTN Time Seen by Provider: 10/09/18 02:30 Source: patient, EMS Mode of arrival: Stretcher Limitations: No Limitations - History of Present Illness Initial comments: 38-year-old female history of hypertension, ESRD presents to ED with elevated blood pressure. Patient stated she was to go to bed at approximately 1 AM and she noticed tingling in her fingers, reports mild headache and dizziness as well. Patient states she was just discharged from this hospital yesterday following an admission for elevated blood pressure. Patient states she took 400 mg of labetalol prior to coming to the ER. Renal: Seshan -: hour(s) (1) Location: head, upper extremity Severity scale (0 -10): 0 Quality: aching Consistency: constant Improves with: none Worsens with: none Associated Symptoms: headaches. denies: chest pain, nausea/vomiting, shortness of breath - Related Data Previous Rx's Medication Instructions Recorded Last Taken Type Labetalol [Labetalol 200mg TAB] 400 mg PO BID #120 tablet 10/08/18 Unknown Rx Labetalol [Labetalol 200mg TAB] 600 mg PO TID #90 tablet 10/08/18 Unknown Rx Allergies Allergy/AdvReac Type Severity Reaction Status Date / Time nitrofurantoin Allergy legs Verified 11/06/17 21:09 [From Macrobid] tingle, hypertension ED Review of Systems ROS: Stated complaint: HTN Other details as noted in HPI Comment: All other systems reviewed and negative Respiratory: denies: shortness of breath Cardiovascular: denies: chest pain Gastrointestinal: denies: nausea, vomiting Neurological: headache, paresthesias ED Past Medical Hx - Past Medical History Previous Medical History?: Yes Hx Hypertension: Yes Hx Congestive Heart Failure: No Hx Diabetes: No Hx Deep Vein Thrombosis: No Hx GERD: Yes Hx Renal Disease: Yes (dialysis [facility] MWF) Hx Sickle Cell Disease: No Hx Seizures: No Hx Asthma: No Hx COPD: No Hx HIV: No Additional medical history: gestational DM 15 years ago - Surgical History Past Surgical History?: Yes Additional Surgical History: x4 - Social History Smoking Status: Never Smoker Substance Use Type: None - Medications Home Medications: Home Medications Medication Instructions Recorded Confirmed Last Taken Type Labetalol [Labetalol 200mg TAB] 400 mg PO BID #120 tablet 10/08/18 Unknown Rx Labetalol [Labetalol 200mg TAB] 600 mg PO TID #90 tablet 10/08/18 Unknown Rx ED Physical Exam - General Limitations: No Limitations General appearance: alert, in no apparent distress - Head Head exam: Present: atraumatic, normocephalic - Eye Eye exam: Present: normal appearance, PERRL, EOMI - ENT ENT exam: Present: mucous membranes moist - Neck Neck exam: Present: normal inspection - Respiratory Respiratory exam: Present: normal lung sounds bilaterally. Absent: respiratory distress - Cardiovascular Cardiovascular Exam: Present: regular rate, normal rhythm - GI/Abdominal GI/Abdominal exam: Absent: distended - Extremities Exam Extremities exam: Present: normal inspection - Neurological Exam Neurological exam: Present: alert, oriented X3, CN II-XII intact. Absent: motor sensory deficit - Psychiatric Psychiatric exam: Present: normal affect, normal mood - Skin Skin exam: Present: warm, dry, intact, normal color ED Course Vital Signs 10/09/18 10/09/18 02:37 02:41 Temperature 98.1 F Pulse Rate 81 81 Respiratory 18 Rate Blood Pressure 193/120 193/120 Blood Pressure 193/120 [Right] O2 Sat by Pulse 100 Oximetry ED Medical Decision Making - Lab Data Result diagrams: 10/09/18 02:44 10/09/18 02:44 - Radiology Data Radiology results: report reviewed, image reviewed - Medical Decision Making 38-year-old female with ESRD and chronic hypertension presents today with elevated blood pressure. Initial blood pressure 193/120. Patient complaining of slight headache, paresthesias to fingers. Neuro exam normal. CT head was obtained and found to be normal. Potassium is normal in the labs. Clonidine was given, blood pressure responded her current blood pressure 154/94. Patient felt much better at this time. Will discharge home. Patient to for dialysis this evening. Return precautions given. - Differential Diagnosis intracranial bleed, HTN emergency, hyperkalemia Critical care attestation.: If time is entered above; I have spent that time in minutes in the direct care of this critically ill patient, excluding procedure time. ED Disposition Clinical Impression: Uncontrolled hypertension Disposition: DC-01 TO HOME OR SELFCARE Is pt being admited?: No Condition: Stable Instructions: Hypertension (ED) Referrals: MINOR SMITH MD [Primary Care Provider] - 3-5 Days Time of Disposition: 03:56
--- NOTE | 2018-10-09 03:25 | Cat Scan Report ---
CT head without contrast INDICATION : MAIN: headache, high blood pressure. TECHNIQUE: Axial imaging performed from the skull apex through the skull base without the use of con trast. All CT scans at this location are performed using CT dose reduction for ALARA by means of aut omated exposure control. COMPARISON: None FINDINGS: Parenchyma: No acute intracranial hemorrhage or parenchymal abnormality. Ventricles: Ventricles are normal in size and appear symmetric. Soft tissues: There is a 1.6 cm cyst in the right parietal scalp. Orbits are normal. Bones: No acute osseous abnormality. Sinuses: Sinuses and mastoid air cells are clear. IMPRESSION: No acute abnormality. Signer Name: Hussain Thibodeaux MD Signed: 10/09/2018 3:21 AM Workstation Name: [id number]
[2018-10-09 03:28] LABS: Hematocrit 37.9 % (30.3-42.9); Hemoglobin 12.7 gm/dl (10.1-14.3); Mean Corpuscular HGB Conc 34 % (30-34); Mean Corpuscular Volume 90 fl (79-97); Platelet Count 205 K/mm3 (140-440); Red Blood Count 4.23 M/mm3 (3.65-5.03); Red Cell Distribution Width 14.8 % (13.2-15.2)
[2018-10-09] MEDS ORDERED: NORMODYNE IV ONE (03:43)
[2018-10-09 03:56] VITALS: BP 154/94
[2018-10-09 04:17] LABS: Basophils % (Manual) 0 % (0.0-1.8); Total Cells Counted 100
[2018-10-09 04:18] LABS: Anisocytosis 1+; Ovalocytes Few; Platelet Estimate Consistent w Auto
== END 2018-10-09 04:26 | disposition home or self-care (01) ==
LOC: ED 02:10
DX: I16.0 Hypertensive urgency (principal); K21.9 Gastro-esophageal reflux disease without esophagitis; I12.0 Hypertensive chronic kidney disease with stage 5 chronic kidney disease or end stage renal disease; N18.6 End stage renal disease; Z99.2 Dependence on renal dialysis; Z88.8 Allergy status to other drugs, medicaments and biological substances
CPT/HCPCS: 36415; 70450; 80048; 85007; 85025; 99285

== ENCOUNTER 2019-05-22 07:01 | Day surgery (SDC) | payer MEDICARE ==
[~2019-05-22 07:01] MED LIST: BACTERIOSTATIC SODIUM CHLORIDE 0.9% 30 ML VIAL INFILTRATI ONE; SODIUM CHLORIDE 0.9% 1000 ML 1,000 ML IV SCH; ceFAZolin/Water 2 GM/20 ML 2 GM/20 ML SYRINGE IV NR
[2019-05-22] MEDS ORDERED: HEPARIN 10,000 UNITS/10 ML VIAL ONE (07:24)
[2019-05-22] MEDS ORDERED: NITROGLYCERIN SYRINGE 0 ML ONE (07:25)
[2019-05-22] MEDS ORDERED: SODIUM CHLORIDE 0.9% 500 ML 0 ML ONE (07:25)
[2019-05-22] MEDS ORDERED: PAPAVERINE 60 MG/2 ML INJ SDV ONE (07:25)
[2019-05-22] MEDS ORDERED: rifAMPin 600 MG VIAL ONE (07:26)
[2019-05-22] MEDS ORDERED: PROTAMINE SULFATE 50 MG/5 ML INJ ONE (07:26)
[2019-05-22] MEDS ORDERED: BUPIVACAINE/PF (0.5%) 5 MG/1 ML 10 ML VIAL INFILTRATI ONE (07:27)
[2019-05-22] MEDS ORDERED: SODIUM CHLORIDE IRRI 1000 ML 1,000 ML IR ONE (08:09)
== END 2019-05-22 07:02 | disposition home or self-care (01) ==
LOC: OR 07:01
PROVIDERS: ATTEND Surgery Vascular Surgery
DX: I12.0 Hypertensive chronic kidney disease with stage 5 chronic kidney disease or end stage renal disease (principal); N18.6 End stage renal disease; Z53.8 Procedure and treatment not carried out for other reasons; Z79.899 Other long term (current) drug therapy; Z98.891 History of uterine scar from previous surgery; D64.9 Anemia, unspecified; K21.9 Gastro-esophageal reflux disease without esophagitis; Z98.51 Tubal ligation status; Z87.440 Personal history of urinary (tract) infections; F41.9 Anxiety disorder, unspecified; Z98.890 Other specified postprocedural states; Z82.49 Family history of ischemic heart disease and other diseases of the circulatory system; Z83.3 Family history of diabetes mellitus; Z88.8 Allergy status to other drugs, medicaments and biological substances
CPT/HCPCS: 81025; J7030; J0690; J1644; J2440; J2720; J3490; J7040

== ENCOUNTER 2019-06-12 06:45 | Day surgery (SDC) | payer MEDICARE ==
[~2019-06-12 06:45] MED LIST changes: -BACTERIOSTATIC SODIUM CHLORIDE 0.9% 30 ML VIAL INFILTRATI ONE; +MIDAZOLAM 2 MG/2 ML INJ IV NR
[2019-06-12] MEDS ORDERED: BACTERIOSTATIC SODIUM CHLORIDE 0.9% 30 ML VIAL INFILTRATI ONE (07:09)
[2019-06-12] MEDS ORDERED: fentaNYL 100 MCG/2 ML INJ IV PRN (07:15)
[2019-06-12 07:27] LABS: Hemoglobin 11.3 gm/dl (10.1-14.3); Mean Corpuscular HGB Conc 32 % (30-34); Mean Corpuscular Volume 81 fl (79-97); Platelet Count 295 K/mm3 (140-440); Red Blood Count 4.42 M/mm3 (3.65-5.03); Red Cell Distribution Width 19.9 % (13.2-15.2)
[2019-06-12] MEDS ORDERED: BUPIVACAINE/PF (0.5%) 5 MG/1 ML 30 ML VIAL INFILTRATI ONE ×3 (07:31→09:07)
[2019-06-12] MEDS ORDERED: LIDOCAINE (1%) 10 MG/1 ML VIAL 20 ML MDV ONE ×2 (07:32→07:42)
--- NOTE | 2019-06-12 07:36 | Anesthesia Day of Surgery ---
Anesthesia Day of Surgery - Day of Surgery Patient Examined: Yes Patient H&P Reviewed: Yes Patient is NPO: Yes Beta Blockers: Yes (labetalol this morning)
--- NOTE | 2019-06-12 07:36 | Anesthesia Consultation ---
Anesthesia Consult and Med Hx Date of service: 06/12/19 - Airway Anesthetic Teeth Evaluation: Good ROM Head & Neck: Adequate Mental/Hyoid Distance: Adequate Mallampati Class: Class III Intubation Access Assessment: Possibly Difficult - Pulmonary Exam CTA: Yes - Cardiac Exam Cardiac Exam: RRR - Pre-Operative Health Status ASA Pre-Surgery Classification: ASA3 Proposed Anesthetic Plan: MAC Nerve Block: supraclavicular - Pulmonary Hx Smoking: No Hx Respiratory Symptoms: No - Cardiovascular System Hx Hypertension: Yes (took labetalol this morning) Hx Heart Attack/AMI: No Hx Percutaneous Transluminal Coronary Angioplasty (PTCA): No - Central Nervous System CVA: No Hx Psychiatric Problems: Yes (anxiety) - Gastrointestinal Hx Gastroesophageal Reflux Disease: No - Endocrine Hx End Stage Renal Disease: Yes (last HD 06/11/2019) Hx Liver Disease: No Hx Insulin Dependent Diabetes: No Hx Non-Insulin Dependent Diabetes: No Hx Thyroid Disease: No - Hematic Hx Anemia: Yes - Other Systems Hx Obesity: No - Additional Comments Anesthesia Medical History Comments: No hx anesthetic complications. Patient desires regional anesthestic.
[2019-06-12 07:39] LABS: Calcium 9.6 mg/dL (8.4-10.2)
[2019-06-12] MEDS ORDERED: HEPARIN 10,000 UNITS/10 ML VIAL ONE (07:42)
[2019-06-12] MEDS ORDERED: PROTAMINE SULFATE 50 MG/5 ML INJ ONE (07:42)
[2019-06-12] MEDS ORDERED: SODIUM CHLORIDE P/F VIAL 10 ML 0 ML ONE (07:42)
[2019-06-12] MEDS ORDERED: rifAMPin 600 MG VIAL ONE (07:42)
[2019-06-12] MEDS ORDERED: SODIUM CHLORIDE 0.9% 500 ML 500 ML ONE (07:43)
[2019-06-12] MEDS ORDERED: SODIUM CHLORIDE 0.9% 250ML 0 ML ONE (07:43)
[2019-06-12] MEDS ORDERED: SODIUM BICARBONATE 2 MEQ/2 ML SYRINGE ONE (07:43)
[2019-06-12] MEDS ORDERED: NITROGLYCERIN SYRINGE 0 ML ONE (07:43)
[2019-06-12] MEDS ORDERED: propofoL 200 MG/20 ML VIAL IV ONE ×3 (08:00→09:03)
[2019-06-12] MEDS ORDERED: GLYCOPYRROLATE 0.4 MG/2 ML INJ ONE (08:00)
[2019-06-12] MEDS ORDERED: LIDOCAINE MPF (2%) 20 MG/1 ML VIAL 5 ML ONE (08:00)
[2019-06-12] MEDS ORDERED: fentaNYL 100 MCG/2 ML INJ ONE (08:00)
[2019-06-12] MEDS ORDERED: PHENYLEPHRINE/NS 1,000 MCG/10 ML SYRINGE (OR USE) IV ONE (08:00)
[2019-06-12] MEDS ORDERED: HEPARIN 10,000 UNITS/10 ML VIAL IV ONE (09:06)
[2019-06-12] MEDS ORDERED: SODIUM CHLORIDE 0.9% IRR 1,500 ML BOTTLE IR ONE (09:07)
[2019-06-12] MEDS ORDERED: SODIUM CHLORIDE 0.9% 500 ML IVPB IRRIGATION ONE (09:07)
--- NOTE | 2019-06-12 09:56 | Short Stay Summary ---
Short Stay Documentation Date of service: 06/12/19 Narrative H&P: See short stay form - Allergies and Medications Current Medications: Allergies nitrofurantoin [From Macrobid] Allergy (Verified 06/08/19 12:08) legs tingle, hypertension Home Medications Medication Instructions Recorded Confirmed Last Taken Type Labetalol 300mg TAB 300 mg PO BID 05/16/19 06/12/19 06/12/19 06:50 History Active Medications Fentanyl (Sublimaze) 50 mcg IV Q5MIN PRN PRN Reason: Pain , Severe (7-10) Cefazolin Sodium (Ancef/Sterile Water 2 Gm/20 Ml) 2 gm in 20 mls @ 80 mls/hr IV PREOP NR; Protocol Stop: 06/12/19 23:59 Sodium Chloride (Nacl 0.9% 1000 Ml) 1,000 mls @ 42 mls/hr IV DIRECT PONCE Last Admin: 06/12/19 07:25 Dose: 42 mls/hr Documented by: Midazolam HCl (Versed) 2 mg IV PREOP NR Stop: 06/12/19 23:00 Last Admin: 06/12/19 07:48 Dose: 2 mg Documented by: - Brief post op/procedure progress note Date of procedure: 06/12/19 Pre-op diagnosis: End-Stage Renal Disease Post-op diagnosis: same Procedure: Creation of Left Brachiocephalic Arteriovenous Fistula Anesthesia: regional Surgeon: LETICIA POLANCO Estimated blood loss: minimal Pathology: none Condition: stable - Disposition Condition at discharge: Good Disposition: DC-01 TO HOME OR SELFCARE Short Stay Discharge Plan Activity: other (No heavy lifting with left arm. Use stress ball with left hand as often as possible.) Wound: open to air, keep clean and dry, other (Okay to wash the wound with soap and water but do not soak in water for 2 weeks.) Follow up with: LETICIA POLANCO MD [Staff Physician] - 14 Days Prescriptions: HYDROcodone/APAP 7.5-325 [[place] 7.5/325] 1 each PO Q6HR PRN #40 tablet PRN Reason: Pain
--- NOTE | 2019-06-12 09:59 | Operative Report ---
Operative Report Operative Report: Date of procedure: 06/12/2019 Pre-operative diagnosis: End-Stage Renal Disease Post-operative diagnosis: End-Stage Renal Disease Procedure(s): Creation of Left Brachial Artery to Cephalic Vein Arteriovenous Fistula Surgeon: Neel Brooke MD Computer Network Specialist: None Anesthesia: Regional Block EBL: Minimal Counts: Correct Complications: None Condition: Stable Findings: Successful creation of left brachiocephalic arteriovenous fistula with palpable thrill and palpable left radial pulse at the completion of the case. Specimen: None Indications: The patient is a 38-year-old female with a history of end-stage renal disease who has been on hemodialysis through a right internal jugular permacath for greater than 1 year. She is in need of permanent arteriovenous access and has a vein that is suitable for creation of a arteriovenous fistula. She was given the risk, benefits, and alternative procedures and consented to the procedure. Description of Procedure: The patient was brought to the operating room and laid in supine position after general endotracheal anesthesia was administered the patient was prepped and draped in normal sterile fashion. After anesthetizing the skin a transverse incision was created just below the antecubital crease. Dissection was carried down to the the cephalic vein using sharp dissection. The vein was dissected out both proximally and distally and suture ligated and divided distally. I then ran a 3 [place] proximally in the vein, to ensure patency of the vein. Then flushed the vein with heparinized saline and flow was controlled with a bulldog clamp. I then dissected out the brachial artery through this incision circumferentially both proximal and distal and controlled the artery with vessel loops. I then placed the vessel loops on tension controlling the flow through the artery and created an arteriotomy using an 11 blade and Moore scissors. I created an end to side anastomosis between the cephalic vein and brachial artery using a 6-0 Prolene in running fashion. Prior to completing the anastomosis I flushed the artery both proximally and distally and then advanced a 3 [place] proximally to break the spasm in the artery. I then completed the anastomosis and removed all vessel loops allowing flow into the fistula which had an adequate thrill. I achieved hemostasis with a combination of direct pressure, electrocautery, and Joo. Once hemostasis was achieved closed the wound in 2 layers and 3-0 Vicryl in a running fashion to close the deep dermal layer and 4- 0 Monocryl in a running fashion in the subcuticular layer. I dressed the wound with Dermabond. The patient tolerated the procedure well, all sponge needle and instrument counts were correct. The patient was taken to recovery in stable condition.
--- NOTE | 2019-06-12 11:52 | Post Anesthesia Evaluation ---
- Post Anesthesia Evaluation Patient Participated: Yes Airway Patent: Yes Stable Respiratory Function: Yes Nausea/Vomiting: No Temp > 96.8F: Yes Pain Manageable: Yes Adequeate Hydration: Yes Anesthesia Complications: No Other Comments: Patient still has full sesnory and motor block. Block precautions explained to patient and family at bedside.
[2019-06-12 14:25] VITALS: BP 141/78
== END 2019-06-12 06:46 | disposition home or self-care (01) ==
LOC: OR 06:45
PROVIDERS: ATTEND Surgery Vascular Surgery
DX: I12.0 Hypertensive chronic kidney disease with stage 5 chronic kidney disease or end stage renal disease (principal); N18.6 End stage renal disease; K21.0 Gastro-esophageal reflux disease with esophagitis; F41.9 Anxiety disorder, unspecified; D64.9 Anemia, unspecified; Z98.890 Other specified postprocedural states; Z98.51 Tubal ligation status; Z82.49 Family history of ischemic heart disease and other diseases of the circulatory system; Z83.3 Family history of diabetes mellitus
CPT/HCPCS: 36415; 36821; 80048; 81025; 85027; C1757; J0690; J1644; J2250; J2370; J2704; J3010; J7030; J7040; 64450; J2720; J3490; J7050

== ENCOUNTER 2020-10-07 16:55 | Emergency (ER) | payer MEDICARE | END 2020-10-07 18:35 | disposition left against medical advice (07) | LOC: ED 16:55 | DX: J02.9 Acute pharyngitis, unspecified (principal); Z53.21 Procedure and treatment not carried out due to patient leaving prior to being seen by health care provider ==